=== PATIENT | female | born 1940 | race Hispanic/Latino ===

== ENCOUNTER 2017-03-22 18:00 | Inpatient (IN) | payer MEDICARE, OTHER ==
[~2017-03-22] VITALS: Ht 152.4 cm; Wt 36.8 kg
[2017-03-22] MEDS ORDERED: PLAVIX75 MG PO (18:40)
[2017-03-22] MEDS ORDERED: PIPER-TAZ 3.375 GM 50 ML IV STA (20:18)
[2017-03-22] MEDS ORDERED: VANCOMYCIN 1GM/NS 250 ML 250 ML IV STA (20:18)
--- NOTE | 2017-03-22 20:59 | Diagnostic Imaging Report ---
- views HISTORY: \S\LE CELLULITIS AND PAD \S\[id number] \S\[id number] COMPARISON: None available. FINDINGS: Bones: No acute displaced fracture. Osseous alignment is within normal limits. Joints: The joint spaces are well-maintained. Soft tissues: Diffuse vascular calcifications. Soft tissue swelling surrounding the ankle and foot. IMPRESSION: Soft tissue swelling without bony abnormalities. Signed by: Dr. Cathy Whitfield M.D. on 03/22/2017 8:55 PM
--- NOTE | 2017-03-22 21:00 | Diagnostic Imaging Report ---
EXAMINATION: CHEST SINGLE (PORTABLE) INDICATION: \S\LE CELLULITIS AND PAD \S\[id number] \S\[id number] COMPARISON: None FINDINGS: AP view TUBES and LINES: None. LUNGS: Lungs are well inflated. Subsegmental atelectasis in the left lower lobe. There is no evidence of pneumonia or pulmonary edema. PLEURA: No pleural effusion or pneumothorax. Right apical pleural scarring. HEART AND MEDIASTINUM: The cardiac silhouette is within normal limits. Fluid-filled structure behind the heart likely is a large hiatal hernia. BONES AND SOFT TISSUES: Intact median sternotomy wires. No acute osseous lesion. Soft tissues are unremarkable. UPPER ABDOMEN: No free air under the diaphragm. IMPRESSION: No acute thoracic abnormality. Hiatal hernia. Signed by: Dr. Cathy Whitfield M.D. on 03/22/2017 8:56 PM
[2017-03-22 21:16] LABS: BASOPHILS % 0.4 % (0.0-1.0); EOSINOPHILS # (AUTO) 0.2 (0.0-0.4); EOSINOPHILS % 1.6 % (0.0-6.0); HEMATOCRIT 37.7 % (34.2-44.1); HEMOGLOBIN 12.2 g/dL (12.0-16.0); INR 0.91; LYMPHOCYTES # (AUTO) 2.4 (1.0-3.2); LYMPHOCYTES % 25.9 % (18.0-39.1); MEAN CORPUSCULAR HEMOGLOBIN 31.2 pg (28-32); MEAN CORPUSCULAR HGB CONC 32.4 g/dL (31-35); MEAN CORPUSCULAR VOLUME 96.4 fL (81-99); MONOCYTES # (AUTO) 0.5 (0.2-0.8); MONOCYTES % 5.8 % (4.4-11.3); PLATELET COUNT 306 x10e3/uL (140-360); PROTHROMBIN TIME 12.7 seconds (11.9-14.5); RED BLOOD COUNT 3.91 x10e6/uL (3.6-5.1); RED CELL DISTRIBUTION WIDTH 13.2 % (11.7-14.4)
[2017-03-22 21:17] LABS: PARTIAL THROMBOPLASTIN TIME 35.3 seconds (23.8-35.5)
[2017-03-22 21:28] LABS: TROPONIN I 0.017 ng/mL (0-0.300)
[2017-03-22 21:29] LABS: ALANINE AMINOTRANSFERASE 12 IU/L (0-55); ALBUMIN 3.5 g/dL (3.5-5.0); ALBUMIN/GLOBULIN RATIO 0.8 (0.8-2.0); ALKALINE PHOSPHATASE 107 IU/L (40-150); ANION GAP 12.6 mmol/L (8-16); BLOOD UREA NITROGEN 19 mg/dL (7-26); BUN/CREATININE RATIO 33 (6-25); CALCIUM 9.4 mg/dL (8.4-10.2); CARBON DIOXIDE 25 mmol/L (22-29); CHLORIDE 100 mmol/L (98-107); CREATINE KINASE 79 IU/L (29-168); CREATININE, SERUM 0.57 mg/dL (0.57-1.11); EST GLOMERULAR FILTRATION RATE > 60 ML/MIN (60-); GLUCOSE 99 mg/dL (74-118); MAGNESIUM 1.8 MG/DL (1.3-2.1); POTASSIUM 3.6 mmol/L (3.5-5.1); SODIUM 134 mmol/L (136-145)
[2017-03-22] MEDS ORDERED: ATORVASTATIN CA20 MG PO (21:37)
[2017-03-22] MEDS ORDERED: ASPIRIN 81 MG CHEW TAB PO ONE (22:00)
[2017-03-22] MEDS ORDERED: MORPHINE SULFATE 2 MG/ML SYR IV PRN (22:15)
[2017-03-22] MEDS ORDERED: ONDANSETRON HCL INJ 2 MG/ML VIAL IV PRN (22:15)
[2017-03-22 23:11] LABS: BILIRUBIN,URINE NEGATIVE (NEGATIVE); KETONES,URINE NEGATIVE (NEGATIVE); LEUKOCYTE ESTERASE ,URINE 1+ (NEGATIVE); NITRITE,URINE NEGATIVE (NEGATIVE); PROTEIN,URINE DIPSTICK NEGATIVE (NEGATIVE); URINE UROBILINOGEN 0.2 mg/dL (0.2 - 1)
[2017-03-22 23:12] LABS: CLARITY,URINE CLEAR (CLEAR); COLOR,URINE YELLOW (YELLOW)
[2017-03-22 23:24] LABS: BACTERIA,URINE MODERATE /HPF; EPITHELIAL CELLS,URINE FEW /LPF; RBC,URINE 0-5 /HPF (0-5); WBC,URINE (MAN) 21-50 /HPF (0-5)
[2017-03-22] MEDS: SODIUM CHLORIDE 0.9% 1000ML 1,000 ML IV SCH (23:33)
[2017-03-23] VITALS (9 sets, daily range): BP systolic 106–155; BP diastolic 56–79
[2017-03-23] MEDS: PIPER-TAZ 3.375 GM 50 ML IV SCH ×4 (00:51→21:07)
[2017-03-23 07:16] LABS: BASOPHILS % 0.4 % (0.0-1.0); EOSINOPHILS # (AUTO) 0.1 (0.0-0.4); EOSINOPHILS % 1.7 % (0.0-6.0); HEMATOCRIT 33.1 % (34.2-44.1); HEMOGLOBIN 10.9 g/dL (12.0-16.0); LYMPHOCYTES # (AUTO) 2.2 (1.0-3.2); LYMPHOCYTES % 31.1 % (18.0-39.1); MEAN CORPUSCULAR HEMOGLOBIN 31.1 pg (28-32); MEAN CORPUSCULAR HGB CONC 32.9 g/dL (31-35); MEAN CORPUSCULAR VOLUME 94.6 fL (81-99); MONOCYTES # (AUTO) 0.4 (0.2-0.8); MONOCYTES % 5.3 % (4.4-11.3); NEUTROPHILS # (AUTO) 4.3 (2.1-6.9); NEUTROPHILS % 61.2 % (38.7-80.0); PLATELET COUNT 307 x10e3/uL (140-360); RED CELL DISTRIBUTION WIDTH 13.2 % (11.7-14.4)
[2017-03-23 07:38] LABS: ALANINE AMINOTRANSFERASE 10 IU/L (0-55); ALBUMIN/GLOBULIN RATIO 0.8 (0.8-2.0); ALKALINE PHOSPHATASE 88 IU/L (40-150); ANION GAP 10.8 mmol/L (8-16); BLOOD UREA NITROGEN 12 mg/dL (7-26); BUN/CREATININE RATIO 24 (6-25); CALCIUM 8.8 mg/dL (8.4-10.2); CARBON DIOXIDE 24 mmol/L (22-29); CHLORIDE 110 mmol/L (98-107); CHOL/HDL RATIO 2.9 (3.0-3.6); CHOLESTEROL 152 MD/DL (0-199); CREATINE KINASE 56 IU/L (29-168); CREATININE, SERUM 0.51 mg/dL (0.57-1.11); EST GLOMERULAR FILTRATION RATE > 60 ML/MIN (60-); GLUCOSE 90 mg/dL (74-118); HDL CHOLESTEROL 53 MG/DL (40-60); LDL CHOLESTEROL 87 MG/DL (60-130); MAGNESIUM 1.9 MG/DL (1.3-2.1); POTASSIUM 3.8 mmol/L (3.5-5.1); SODIUM 141 mmol/L (136-145); TRIGLYCERIDES 59 MG/DL (0-149)
[2017-03-23 07:48] LABS: TROPONIN I 0.006 ng/mL (0-0.300)
[2017-03-23] MEDS: ASPIRIN 325 MG TAB EC PO SCH (09:14)
[2017-03-23] MEDS ORDERED: MORPHINE SULFATE 5 MG/ML VIAL IV PRN (10:30)
[2017-03-23 16:17] LABS: CREATINE KINASE MB 2.7 ng/mL (0.00-5.00); TROPONIN I 0.007 ng/mL (0-0.300)
[2017-03-23] MEDS: SODIUM CHLORIDE 0.9% 1000ML 1,000 ML IV SCH ×2 (16:17→23:21)
[2017-03-24] VITALS: BP 123/57
[2017-03-24 01:15] VITALS: BP 132/67
[2017-03-24] MEDS: PIPER-TAZ 3.375 GM 50 ML IV SCH ×4 (02:53→22:37)
[2017-03-24 04:00] VITALS: BP 117/59
[2017-03-24] MEDS: SODIUM CHLORIDE 0.9% 1000ML 1,000 ML IV SCH ×3 (06:01→23:31)
[2017-03-24 06:56] LABS: BASOPHILS % 0.4 % (0.0-1.0); EOSINOPHILS # (AUTO) 0.2 (0.0-0.4); EOSINOPHILS % 2.2 % (0.0-6.0); HEMATOCRIT 31.7 % (34.2-44.1); HEMOGLOBIN 10.3 g/dL (12.0-16.0); LYMPHOCYTES # (AUTO) 2.6 (1.0-3.2); LYMPHOCYTES % 36.6 % (18.0-39.1); MEAN CORPUSCULAR HEMOGLOBIN 31.4 pg (28-32); MEAN CORPUSCULAR HGB CONC 32.5 g/dL (31-35); MEAN CORPUSCULAR VOLUME 96.6 fL (81-99); MONOCYTES # (AUTO) 0.5 (0.2-0.8); MONOCYTES % 7.2 % (4.4-11.3); NEUTROPHILS # (AUTO) 3.7 (2.1-6.9); NEUTROPHILS % 53.5 % (38.7-80.0); PLATELET COUNT 303 x10e3/uL (140-360); RED BLOOD COUNT 3.28 x10e6/uL (3.6-5.1); RED CELL DISTRIBUTION WIDTH 13.2 % (11.7-14.4)
[2017-03-24 07:14] LABS: ANION GAP 11.7 mmol/L (8-16); BLOOD UREA NITROGEN 9 mg/dL (7-26); BUN/CREATININE RATIO 18 (6-25); CALCIUM 8.3 mg/dL (8.4-10.2); CARBON DIOXIDE 23 mmol/L (22-29); CHLORIDE 110 mmol/L (98-107); CREATININE, SERUM 0.49 mg/dL (0.57-1.11); EST GLOMERULAR FILTRATION RATE > 60 ML/MIN (60-); GLUCOSE 99 mg/dL (74-118); POTASSIUM 3.7 mmol/L (3.5-5.1); SODIUM 141 mmol/L (136-145)
[2017-03-24 08:00] VITALS: BP 99/54
[2017-03-24] MEDS: ASPIRIN 325 MG TAB EC PO SCH (09:15)
[2017-03-24 12:00] VITALS: BP 111/55
[2017-03-24 16:00] VITALS: BP 158/68
--- NOTE | 2017-03-24 16:02 | Consultation ---
DATE OF CONSULTATION: March 24, 2017 CARDIAC CONSULTATION REASON FOR CONSULTATION: Ischemic, gangrenous left foot and leg. HISTORY: Information is taken from the patient's daughter over the phone. Patient is demented and cannot give much information. Apparently she is a 76-year-old lady who is a heavy smoker. She used to live in [place], [place]. She does have very severe advanced vascular disease. In fact, the patient had CAD and PCI. Also, she does have severe peripheral arterial vascular disease. She had extensive stenting of the right and left lower extremities. Despite all of that, patient ended up with right above-knee amputation. She had extensive stenting of the left lower extremity. Patient came to this institution complaining of ischemic left leg with gangrenous toes and severe cellulitis. Patient was started on antibiotics. Initial workup by noninvasive study showed extensive stenting of the femoral and popliteal arteries, which is occluded. The left common femoral Doppler waveform is abnormally monophasic indicating external iliac disease. Regardless, cardiac consultation is obtained. I visited with the patient. The patient cannot give much information. Information is taken from the daughter. The patient's problem started as mentioned above. It started with gangrenous changes and cellulitis. Subsequently, she started having gangrenous changes. Patient is brought to this institution. She had a similar problem before where the patient had extensive workup as described above. Despite all of that, she lost her knee, and she needed to go for right above-knee amputation. CARDIAC ISSUES: There is no history of angina. Patient had prior CAD with PCI a couple of years ago. Unfortunately, she is a heavy smoker. She does have a smoker's cough. She does have easy fatigability and shortness of breath on exertion. Some orthopnea but no paroxysmal nocturnal dyspnea. REVIEW OF SYSTEMS: As I mentioned, from the daughter: CARDIAC AND PULMONARY: As per above. GI: Constipation. : Incontinence. NEUROMUSCULAR: Patient's activities are limited because of her right above-knee amputation. PSYCHIATRIC: Patient is demented. SOCIAL HISTORY: She lives now with her daughter. Unfortunately, she is a heavy smoker, but she does not drink alcohol. PAST MEDICAL HISTORY 1. Severe vascular disease status post extensive stenting of the lower extremities with right above-knee amputation. 2. Coronary artery disease status post PCI. 3. Other minor surgery. 4. COPD. 5. Heavy smoker. FAMILY HISTORY: Positive for coronary artery disease. PHYSICAL EXAMINATION GENERAL: Thin lady. Very small, petite. Confused. VITAL SIGNS: Blood pressure is 120/70. Heart rate of 70. Respiratory rate of 18. HEENT: Pupils are reactive. NECK: Bilateral carotid bruit. CHEST: Decreased air entry with crackles and decreased lung expansion. HEART: Normal 1st and 2nd heart sounds. ABDOMEN: Soft. EXTREMITIES: Right above-knee amputation. Ischemic left foot with gangrenous changes in the foot. No pulses below the femoral level. NEUROLOGIC: Patient is confused but able to move her extremities. LABORATORY DATA: White blood cell count of 6.96, hemoglobin 10.3, hematocrit 32%, platelet count 303,000. Sodium 141, potassium 3.7, BUN of 9, creatinine of 0.25, glucose 99. CKs are normal. Triglycerides of 59, total cholesterol 152, HDL of 53, LDL of 87. ALLERGIES: NONE. HOME MEDICATIONS: Plavix and Lipitor. IMPRESSION AND PLAN 1. Ischemic left foot with gangrenous changes and ischemic left leg with prior intervention and evidence of occluded stent from the femoral all the way to the popliteal. 2. Coronary artery disease, status post percutaneous coronary intervention. 3. Chronic obstructive pulmonary disease. 4. Smoker. 5. Hypercholesterolemia. 6. Right above-knee amputation following a long course of treatment. PLAN: Unfortunately, the patient's prognosis for that leg is guarded. We will try to do CT angiogram of the pelvis and runoff to look at her anatomy. Intervention will be limited by the fact the patient is very petite and her brachial and radial are very small and extensive long occlusion of stent. Regardless, we will re-evaluate the patient. Will discuss more with the family. Will get a CT angiogram. She does have bilateral carotid bruit. Will order a carotid Doppler. We will follow the patient's progression with you. Job#: [id number]
[2017-03-24] MEDS ORDERED: SODIUM CHLORIDE 0.9% 50ML 100 ML ONE (22:10)
[2017-03-24] MEDS ORDERED: IOPAMIDOL 370 MG/ML 200 ML INFUS..BTL INJ ONE (22:10)
--- NOTE | 2017-03-24 22:25 | Diagnostic Imaging Report ---
CTA ABD/PEL/RUN OFF COMPARISON: None HISTORY: 76 y/o with history of left leg iliac disease Technique: Multi-detector CT technology was employed. CT of the abdomen, pelvis and lower extremities were performed following the IV administration of 100 cc of Isovue-370. IV CONTRAST:100mL of Isovue-370 ORAL CONTRAST: None RADIATION DOSE: Total DLP: 572.26 mGy*cm Estimated Effective Dose: DLP x 0.015 mSv COMPLICATIONS: None For optimization of anatomic evaluation, multiplanar reconstruction, maximum intensity projections, and advanced 3-D off-line postprocessing were performed on a dedicated stand-alone workstation under the direct supervision of the interpreting physician. FINDINGS: Potential study limitations: None. VASCULAR WITH ADVANCED 3-D OFF-LINE POSTPROCESSING: The abdominal aorta is diffusely atherosclerotic with multiple areas of defect calcified and soft plaque. The abdominal aorta measures: 2.2 cm at the supramesenteric segment 1.7 cm at the mesenteric segment 1.6 cm at the renal segment 1.7 cm at the mid infrarenal segment 1.6 cm at the aortic bifurcation. The celiac axis, and SMA appear patent. ORI is not identified There are single renal arteries bilaterally, both of which appear patent. There are bilateral external iliac stents in place. Right: There is patency of the right external iliac to the level of the femoral artery. The right femoral artery is occluded all the way to the proximal popliteal without distal reconstitution. Left: The left iliac vessels are patent with evidence of complete occlusion at the proximal superficial femoral artery and distal reconstitution at the distal popliteal artery and patency of the posterior tibial, anterior tibial and peroneal artery with reduced caliber to the level of the ankle. LOWER CHEST: Minimal bibasilar basilar congestion. There is a large sliding hiatal hernia present. ABDOMEN: The liver, gallbladder, spleen, and pancreas appear normal. The adrenal glands appear normal. Both kidneys are normal in size, shape, and density. There is no abnormal mass or hydronephrosis. There is no significant retroperitoneal adenopathy. No free fluid or free air within the abdomen or pelvis. The bowel appears unremarkable on this non-GI contrast examination. The appendix is not visualized. BONES: Degenerative changes of the thoracal lumbar spine with mild levorotoscoliosis. IMPRESSION: 1. Abnormal abdominal aorta with evidence of severe atherosclerotic disease of the thoracoabdominal aorta and branches. No acute abdominal aortic pathology. 2. There is complete occlusion of the bilateral femoral arteries as described above. There is distal reduced diffusion on the left at the level of the distal popliteal artery with three-vessel runoff to the level of the ankle. Signed by: Dr. Trenton Eldridge M.D. on 03/24/2017 10:22 PM
[2017-03-25 00:40] VITALS: BP 125/60
[2017-03-25] MEDS: PIPER-TAZ 3.375 GM 50 ML IV SCH ×4 (03:50→20:49)
[2017-03-25 04:00] VITALS: BP 108/59
[2017-03-25 08:00] VITALS: BP 121/69
[2017-03-25] MEDS: ASPIRIN 325 MG TAB EC PO SCH (09:15)
[2017-03-25] MEDS ORDERED: CLOPIDOGREL BISULFATE 75 MG TAB PO ONE (12:30)
[2017-03-25] MEDS: SODIUM CHLORIDE 0.9% 1000ML 1,000 ML IV SCH ×2 (16:15→20:49)
[2017-03-25 20:00] VITALS: BP 149/87
[2017-03-26] VITALS (7 sets, daily range): BP systolic 104–161; BP diastolic 56–73
[2017-03-26] MEDS: PIPER-TAZ 3.375 GM 50 ML IV SCH ×4 (03:30→20:21)
[2017-03-26] MEDS: SODIUM CHLORIDE 0.9% 1000ML 1,000 ML IV SCH ×2 (04:41→13:18)
[2017-03-26] MEDS: ASPIRIN 325 MG TAB EC PO SCH (08:06)
[2017-03-26] MEDS: CLOPIDOGREL BISULFATE 75 MG TAB PO SCH (08:06)
[2017-03-26 09:28] LABS: BASOPHILS % 0.3 % (0.0-1.0); EOSINOPHILS # (AUTO) 0.1 (0.0-0.4); EOSINOPHILS % 0.8 % (0.0-6.0); HEMATOCRIT 35.5 % (34.2-44.1); HEMOGLOBIN 11.4 g/dL (12.0-16.0); MEAN CORPUSCULAR HEMOGLOBIN 30.8 pg (28-32); MEAN CORPUSCULAR HGB CONC 32.1 g/dL (31-35); MEAN CORPUSCULAR VOLUME 95.9 fL (81-99); MONOCYTES # (AUTO) 0.3 (0.2-0.8); MONOCYTES % 4.5 % (4.4-11.3); NEUTROPHILS # (AUTO) 5.2 (2.1-6.9); NEUTROPHILS % 79.1 % (38.7-80.0); PLATELET COUNT 322 x10e3/uL (140-360); RED CELL DISTRIBUTION WIDTH 13.2 % (11.7-14.4)
[2017-03-26 09:59] LABS: ANION GAP 14.2 mmol/L (8-16); BLOOD UREA NITROGEN 8 mg/dL (7-26); BUN/CREATININE RATIO 14 (6-25); CALCIUM 8.7 mg/dL (8.4-10.2); CARBON DIOXIDE 22 mmol/L (22-29); CHLORIDE 109 mmol/L (98-107); CREATININE, SERUM 0.58 mg/dL (0.57-1.11); EST GLOMERULAR FILTRATION RATE > 60 ML/MIN (60-); GLUCOSE 161 mg/dL (74-118); POTASSIUM 4.2 mmol/L (3.5-5.1); SODIUM 141 mmol/L (136-145)
[2017-03-26] MEDS ORDERED: QUETIAPINE FUMARATE 25 MG TAB PO ONE (12:00)
[2017-03-26] MEDS ORDERED: MORPHINE SULFATE 5 MG/ML VIAL IV PRN (14:30)
[2017-03-26] MEDS: QUETIAPINE FUMARATE 25 MG TAB PO SCH (20:21)
[2017-03-27] VITALS (12 sets, daily range): BP systolic 103–153; BP diastolic 53–85
[2017-03-27] MEDS: PIPER-TAZ 3.375 GM 50 ML IV SCH ×4 (03:45→20:49)
[2017-03-27 07:08] LABS: BASOPHILS % 0.5 % (0.0-1.0); EOSINOPHILS # (AUTO) 0.2 (0.0-0.4); EOSINOPHILS % 3.2 % (0.0-6.0); HEMATOCRIT 37.3 % (34.2-44.1); HEMOGLOBIN 11.6 g/dL (12.0-16.0); LYMPHOCYTES # (AUTO) 1.6 (1.0-3.2); LYMPHOCYTES % 24.8 % (18.0-39.1); MEAN CORPUSCULAR HEMOGLOBIN 30.3 pg (28-32); MEAN CORPUSCULAR HGB CONC 31.1 g/dL (31-35); MEAN CORPUSCULAR VOLUME 97.4 fL (81-99); MONOCYTES # (AUTO) 0.5 (0.2-0.8); MONOCYTES % 7.1 % (4.4-11.3); NEUTROPHILS # (AUTO) 4.2 (2.1-6.9); NEUTROPHILS % 64.1 % (38.7-80.0); PLATELET COUNT 340 x10e3/uL (140-360); RED BLOOD COUNT 3.83 x10e6/uL (3.6-5.1); RED CELL DISTRIBUTION WIDTH 13.4 % (11.7-14.4)
[2017-03-27 07:43] LABS: ANION GAP 12.8 mmol/L (8-16); BLOOD UREA NITROGEN 14 mg/dL (7-26); BUN/CREATININE RATIO 26 (6-25); CARBON DIOXIDE 26 mmol/L (22-29); CHLORIDE 109 mmol/L (98-107); CREATININE, SERUM 0.53 mg/dL (0.57-1.11); EST GLOMERULAR FILTRATION RATE > 60 ML/MIN (60-); GLUCOSE 76 mg/dL (74-118); POTASSIUM 3.8 mmol/L (3.5-5.1); SODIUM 144 mmol/L (136-145)
[2017-03-27] MEDS: ASPIRIN 325 MG TAB EC PO SCH (08:52)
[2017-03-27] MEDS: CLOPIDOGREL BISULFATE 75 MG TAB PO SCH (08:52)
[2017-03-27] MEDS: SODIUM CHLORIDE 0.9% 1000ML 1,000 ML IV SCH (09:00)
[2017-03-27] MEDS ORDERED: IOPAMIDOL 370 MG/ML 200 ML INFUS..BTL INJ ONE ×2 (11:00→12:20)
[2017-03-27] MEDS ORDERED: LIDOCAINE HCL 2% LOCAL 20 ML VIAL ONE (11:00)
[2017-03-27] MEDS ORDERED: HEPARIN SOD/SOD CHLORIDE 2,000 ML ONE (11:00)
[2017-03-27] MEDS ORDERED: MIDAZOLAM HCL 2 MG/2 ML VIAL ONE (11:14)
[2017-03-27] MEDS ORDERED: FENTANYL CITRATE/PF 100MCG/2 ML INJ ONE (11:14)
[2017-03-27] MEDS ORDERED: SODIUM CHLORIDE 0.9% 1000ML 1,000 ML ONE ×2 (11:17→12:57)
--- NOTE | 2017-03-27 13:47 | Operative Report ---
DATE OF PROCEDURE: March 27, 2017 TITLE OF PROCEDURES 1. Abdominal and leg angiogram to the 3rd order. 2. Repeat injection, 3rd and 4th orders. 3. Percutaneous transluminal angioplasty of left external common iliac artery. 4. Percutaneous transluminal angioplasty and stenting of the left femoral artery. INDICATIONS: Ischemic left leg with gangrenous left foot and severe rest pain/salvage intervention to save the lower extremity. Prior to the procedure, I explained there is a chance 50:50 of the patient needing an amputation. TECHNICAL DETAILS: Patient was brought to the cardiac minilab operator. She was given 0.5 mg of Versed followed by 0.5 mg of Versed. During the course, she got 25 mg of fentanyl. Cinegram was done, which showed extensive stenting of both lower extremities involving femorals and iliacs. We elected to go through the right common femoral. This was entered. Definitely, the artery is occluded there. However, using the stent and the anatomical landmarks, we passed wires through the total occlusion of the right common femoral and the distal external iliac. We managed to go through the lumen. A 4 Portuguese was established in [address]. We used a tennis racket 4 Portuguese to do abdominal and pelvic angiogram. Then, using the Godengonis racket and DeepField Advantage wire, we crossed over to the left leg. We crossed all the way to the superficial femoral. At that time, we place up-and-over sheath 6 Portuguese. Heparin was given in the usual dosage. We used a crossing catheter. The crossing catheter was advanced with the help of fluoro, and it went through totally occluded SFA from its origin all the way to the popliteal artery. We were definitely inside the true lumen. Then we used a 300-cm, 0.014 wire. We did extensive ballooning of the SFA. I should mention before we did that, we did ballooning of the severe lesion of the left external common iliac using 6 x 60 balloon to facilitate the blood flow to the SFA and the distal leg. After extensive ballooning with 4 x 14-mm balloon, it was obvious that there is an area of problem and the cause for old stent occlusion at the superficial femoral at its origin. There was no AngioSculpt balloon. For that reason, we used LifeStent 6 x 60. We repeated ballooning all the way to the outflow and inflow of that SFA. Repeated angiogram showed satisfactory results. At that time, the case was ended. The sheath was removed. Hemostasis was achieved manually. No complication and no blood loss. RESULTS: Abdominal angiogram. There is heavily calcified aorta. There is distal small aneurysm. There is extensive stenting of both iliacs extending in the superficial femoral as well as deep femoral arteries bilaterally. On the right leg, there is right above-knee amputation. Patient had totally occluded distal right external iliac and the common femoral artery. On the left lower extremity, there is severe lesion at the bifurcation of the left internal and external iliac with 80% stenosis. There is extensive stenting in that area. In the deep femoral, there is a stent in it with 80% ostial lesion. The left superficial femoral artery is totally occluded all the way to the popliteals. There is a stent there, and the stent is totally occluded. There is severe disease in the anterior and posterior tibial artery. ENVIRONMENTAL PERMITTING SPECIALIST of the left external common iliac artery. The lesion prior to ballooning was at 80%. Following ballooning with 6 x 60 Ultraverse balloon, it is at 0%. Left superficial femoral extensively diseased. We ballooned with 4 x 40 balloon through all its course, and subsequently we stented the ostial left superficial femoral artery using 6 x 60-mm LifeStent. Repeated ballooning was done extensively. IMPRESSION 1. Successful percutaneous transluminal angioplasty of left iliac artery. 2. Successful stenting of the proximal superficial femoral artery stent in-stent as well as ballooning angioplasty of all the left superficial femoral artery. COMPLICATIONS: None. BLOOD LOSS: Minimum. The case was ended. I called the [id number] and informed her about the procedure and the results. Job#: [id number]
[2017-03-27] MEDS: QUETIAPINE FUMARATE 25 MG TAB PO SCH (20:49)
[2017-03-28] VITALS (7 sets, daily range): BP systolic 102–141; BP diastolic 53–96
[2017-03-28] MEDS: PIPER-TAZ 3.375 GM 50 ML IV SCH ×4 (03:56→20:42)
[2017-03-28] MEDS: SODIUM CHLORIDE 0.9% 1000ML 1,000 ML IV SCH (06:13)
[2017-03-28 06:37] LABS: BASOPHILS % 0.4 % (0.0-1.0); EOSINOPHILS # (AUTO) 0.2 (0.0-0.4); EOSINOPHILS % 3.3 % (0.0-6.0); HEMATOCRIT 34.6 % (34.2-44.1); LYMPHOCYTES # (AUTO) 1.9 (1.0-3.2); LYMPHOCYTES % 25.5 % (18.0-39.1); MEAN CORPUSCULAR HEMOGLOBIN 30.9 pg (28-32); MEAN CORPUSCULAR HGB CONC 31.8 g/dL (31-35); MEAN CORPUSCULAR VOLUME 97.2 fL (81-99); MONOCYTES # (AUTO) 0.5 (0.2-0.8); MONOCYTES % 6.9 % (4.4-11.3); NEUTROPHILS # (AUTO) 4.7 (2.1-6.9); NEUTROPHILS % 63.6 % (38.7-80.0); PLATELET COUNT 319 x10e3/uL (140-360); RED BLOOD COUNT 3.56 x10e6/uL (3.6-5.1); RED CELL DISTRIBUTION WIDTH 13.2 % (11.7-14.4)
[2017-03-28 07:06] LABS: ANION GAP 12.7 mmol/L (8-16); BLOOD UREA NITROGEN 11 mg/dL (7-26); BUN/CREATININE RATIO 21 (6-25); CALCIUM 8.9 mg/dL (8.4-10.2); CARBON DIOXIDE 24 mmol/L (22-29); CHLORIDE 109 mmol/L (98-107); CREATININE, SERUM 0.52 mg/dL (0.57-1.11); EST GLOMERULAR FILTRATION RATE > 60 ML/MIN (60-); GLUCOSE 88 mg/dL (74-118); POTASSIUM 3.7 mmol/L (3.5-5.1); SODIUM 142 mmol/L (136-145)
[2017-03-28] MEDS: ASPIRIN 325 MG TAB EC PO SCH (08:50)
[2017-03-28] MEDS: CLOPIDOGREL BISULFATE 75 MG TAB PO SCH (08:50)
[2017-03-28] MEDS: QUETIAPINE FUMARATE 25 MG TAB PO SCH (20:42)
[2017-03-29 00:33] VITALS: BP 119/70
[2017-03-29 00:52] VITALS: BP 147/68
[2017-03-29] MEDS: PIPER-TAZ 3.375 GM 50 ML IV SCH ×2 (03:08→09:00)
[2017-03-29 05:28] VITALS: BP 136/75
[2017-03-29 07:45] VITALS: BP 147/66
[2017-03-29 07:54] VITALS: BP 147/66
[2017-03-29] MEDS: ASPIRIN 325 MG TAB EC PO SCH (09:00)
[2017-03-29] MEDS: CLOPIDOGREL BISULFATE 75 MG TAB PO SCH (09:00)
[2017-03-29 11:34] VITALS: BP 132/62
== END 2017-03-29 13:05 | disposition home or self-care (01) | DRG 253 ==
LOC: ER 18:00 → MED/SURG3 22:33 → INTOOBSV 22:33 → OBSVTOIN 03-24 15:36
PROC: 047J3ZZ Dilation of Left External Iliac Artery, Percutaneous Approach (ICD-10-PCS; principal; 2017-03-27)
PROC: 047L3DZ Dilation of Left Femoral Artery with Intraluminal Device, Percutaneous Approach (ICD-10-PCS; 2017-03-27)
DX: I70.262 Atherosclerosis of native arteries of extremities with gangrene, left leg (principal); L03.116 Cellulitis of left lower limb; I50.32 Chronic diastolic (congestive) heart failure; F03.90 Unspecified dementia, unspecified severity, without behavioral disturbance, psychotic disturbance, mood disturbance, and anxiety; T82.858A Stenosis of other vascular prosthetic devices, implants and grafts, initial encounter; N39.0 Urinary tract infection, site not specified; I70.92 Chronic total occlusion of artery of the extremities; Z89.611 Acquired absence of right leg above knee; I10 Essential (primary) hypertension; F17.210 Nicotine dependence, cigarettes, uncomplicated; I25.10 Atherosclerotic heart disease of native coronary artery without angina pectoris; Z95.5 Presence of coronary angioplasty implant and graft; J44.9 Chronic obstructive pulmonary disease, unspecified; Z95.820 Peripheral vascular angioplasty status with implants and grafts; R41.0 Disorientation, unspecified
CPT/HCPCS: 36140; 36415; 37222; 37227; 71010; 75630; 75635; 75710; 80048; 80053; 80061; 81001; 82550; 82553; 83605; 83735; 84484; 85025; 85610; 85730; 87040; 87086; 93005; 93306; 93880; 93926; 93971; 96361; 99284; C1766; G0378; J2001; J2250; J2270; J2405; J2543; J3370; J7030; Q9967

== ENCOUNTER 2017-09-22 21:45 | Inpatient (IN) | payer MEDICARE, OTHER ==
[~2017-09-22] VITALS: Ht 149.9 cm; Wt 36.0 kg
[~2017-09-22 21:45] MED LIST: ATORVASTATIN CA20 MG PO; PLAVIX75 MG PO
[2017-09-22 22:26] LABS: BASOPHILS % 0.3 % (0.0-1.0); EOSINOPHILS # (AUTO) 0.1 (0.0-0.4); HEMATOCRIT 39.9 % (34.2-44.1); HEMOGLOBIN 13.1 g/dL (12.0-16.0); LYMPHOCYTES # (AUTO) 3.3 (1.0-3.2); LYMPHOCYTES % 40.6 % (18.0-39.1); MEAN CORPUSCULAR HEMOGLOBIN 30.6 pg (28-32); MEAN CORPUSCULAR HGB CONC 32.8 g/dL (31-35); MEAN CORPUSCULAR VOLUME 93.2 fL (81-99); MONOCYTES # (AUTO) 0.5 (0.2-0.8); MONOCYTES % 5.6 % (4.4-11.3); NEUTROPHILS # (AUTO) 4.2 (2.1-6.9); NEUTROPHILS % 52.1 % (38.7-80.0); PLATELET COUNT 296 x10e3/uL (140-360); RED BLOOD COUNT 4.28 x10e6/uL (3.6-5.1); RED CELL DISTRIBUTION WIDTH 14.1 % (11.7-14.4)
[2017-09-22] MEDS ORDERED: ASPIRIN 81 MG CHEW TAB PO ONE (22:30)
[2017-09-22 22:33] LABS: INR 0.94; PROTHROMBIN TIME 11.8 seconds (11.9-14.5)
[2017-09-22 22:34] LABS: PARTIAL THROMBOPLASTIN TIME 29.7 seconds (23.8-35.5)
[2017-09-22 22:44] LABS: ALANINE AMINOTRANSFERASE 11 IU/L (0-55); ALBUMIN 3.6 g/dL (3.5-5.0); ALBUMIN/GLOBULIN RATIO 0.8 (0.8-2.0); ALKALINE PHOSPHATASE 109 IU/L (40-150); ANION GAP 14.9 mmol/L (8-16); BLOOD UREA NITROGEN 8 mg/dL (7-26); BUN/CREATININE RATIO 13 (6-25); CALCIUM 9.8 mg/dL (8.4-10.2); CARBON DIOXIDE 28 mmol/L (22-29); CHLORIDE 101 mmol/L (98-107); CREATINE KINASE 37 IU/L (29-168); CREATININE, SERUM 0.62 mg/dL (0.57-1.11); EST GLOMERULAR FILTRATION RATE > 60 ML/MIN (60-); GLUCOSE 93 mg/dL (74-118); POTASSIUM 3.9 mmol/L (3.5-5.1); SODIUM 140 mmol/L (136-145)
--- NOTE | 2017-09-22 23:16 | Diagnostic Imaging Report ---
EXAMINATION: CHEST SINGLE (PORTABLE) INDICATION: Left lung rhonchi. COMPARISON: CT of the abdomen and pelvis on 03/24/2017 FINDINGS: TUBES and LINES: None. LUNGS: Lungs are well inflated. Left lung base retrocardiac opacity in keeping with hiatal hernia. There is no evidence of pneumonia or pulmonary edema. PLEURA: No pleural effusion or pneumothorax. HEART AND MEDIASTINUM: The cardiomediastinal silhouette is unremarkable. There are atherosclerotic calcifications within the aorta. Midline sternotomy wires are stable BONES AND SOFT TISSUES: No acute osseous lesion. Soft tissues are unremarkable. UPPER ABDOMEN: No free air under the diaphragm. IMPRESSION: No acute thoracic abnormality. Signed by: Dr. Trenton Eldridge M.D. on 09/22/2017 11:14 PM
[2017-09-23] VITALS (8 sets, daily range): BP systolic 93–155; BP diastolic 60–76
[2017-09-23] MEDS ORDERED: ONDANSETRON HCL INJ 2 MG/ML VIAL IV PRN (00:15)
[2017-09-23] MEDS ORDERED: SODIUM CHLORIDE FLUSH 10 ML SYR INJ PRN (00:15)
[2017-09-23] MEDS ORDERED: HEPARIN SOD (PORCINE) 5,000 UNIT/ML VIAL IV ONE (00:15)
[2017-09-23] MEDS ORDERED: HEPARIN 25,000U/0.45% NS 250ML 25,000 UNIT in SODIUM CHLORIDE 0.9% 250ML 0 ML IV SCH ×4 (00:15→23:05)
[2017-09-23] MEDS ORDERED: SODIUM CHLORIDE 0.9% 100 ML 100 ML ONE (02:15)
--- NOTE | 2017-09-23 05:58 | Diagnostic Imaging Report ---
CTA OF THE ABDOMINAL AORTA Comparison: 03/24/2017 History: 76 y/o with history of lower extremity swelling Technique: Multi-detector CT images were obtained of the abdomen, pelvis and lower extremities IV CONTRAST:100mL of Isovue-370 ORAL CONTRAST: Water RADIATION DOSE: Total DLP: 565.45 mGy*cm Estimated Effective Dose: DLP x 0.015 mSv COMPLICATIONS: None For optimization of anatomic evaluation, multiplanar reconstruction, maximum intensity projections, and advanced 3-D off-line postprocessing were performed on a dedicated stand-alone workstation under the direct supervision of the interpreting physician. FINDINGS: Potential study limitations: None. VASCULAR WITH ADVANCED 3-D OFF-LINE POSTPROCESSING: The abdominal aorta is abnormal in course, caliber, and contour. There is no acute aortic pathology. There is extensive atherosclerotic disease of the abdominal aorta and branches with mild ectasia of the infrarenal abdominal aorta. The abdominal aorta measures: 2.2 cm at the supramesenteric segment 2 cm at the mesenteric segment 1.6 cm at the renal segment 2.2 cm at the mid infrarenal segment 1.5 cm at the aortic bifurcation. The celiac axis, SMA, and ORI are patent. There are single renal arteries bilaterally, both of which appear patent. The pelvic arteries are tortuous, but otherwise normal in caliber and contour. There is severe (complete) stenosis of the right common iliac artery without distal reconstitution. EXTREMITIES: The right lower extremity appears to be amputated [id number]. The left lower extremity demonstrates a patent common iliac, internal and external iliac with severe atherosclerotic disease. There is complete occlusion of the superficial femoral and profunda femoris arteries with numerous superficial collaterals resulting in reconstitution of the distal popliteal artery and overall a two-vessel runoff including the peroneal and anterior tibial arteries. The fluid is supplied by the dorsal artery from the anterior tibial. LOWER CHEST: The visualized lung bases are clear. Moderate sized sliding hiatal hernia is present. ABDOMEN: The liver, gallbladder, spleen, and pancreas appear normal. The adrenal glands appear normal. Both kidneys are normal in size, shape, and density. There is no abnormal mass or hydronephrosis. There is no retroperitoneal adenopathy. No free fluid or free air within the abdomen or pelvis. The bowel appears unremarkable on this non-GI contrast examination. IMPRESSION: 1. Severe atherosclerotic disease of the abdominal aorta and branches with complete occlusion of the right lower extremity vasculature at the level of the right common iliac artery. 2. Progressive thrombosis of the right lower extremity arterial system with [id number] amputation without perfusion from the common right iliac artery. 3. Stable left lower extremity with long segmental occlusion of the common femoral, superficial femoral and profunda femoris arteries. There is distal reconstitution at the level of the distal popliteal artery with two-vessel runoff as described above. The left foot is supplied by the dorsal artery coming off the anterior tibial artery. Signed by: Dr. Trenton Eldridge M.D. on 09/23/2017 5:54 AM
[2017-09-23] MEDS ORDERED: SODIUM CHLORIDE 0.9% 250ML 250 ML ONE (06:09)
[2017-09-23] MEDS ORDERED: IOPAMIDOL 370 MG/ML 200 ML INFUS..BTL INJ ONE (06:35)
[2017-09-23] MEDS: CLINDAMYCIN PHOS 900MG/ D5W 50 50 ML IV SCH ×3 (07:18→23:28)
[2017-09-23] MEDS: CLOPIDOGREL BISULFATE 75 MG TAB PO SCH (08:09)
--- NOTE | 2017-09-23 08:32 | History and Physical ---
A 76-year-old female, who comes in with left lower extremity pain and erythema and discoloration. HISTORY OF PRESENTING ILLNESS: This is Ms. Kerry Yo with the history of hypertension, with the history of peripheral vascular disease and history of COPD, was in usual state of health until the patient started to note left lower extremity swelling, erythema, and tenderness, and also area on her 4th digit, which was looking black. The patient comes in, was found to have cellulitis of left lower extremity and also severe peripheral vascular disease and was admitted for the same. PAST MEDICAL HISTORY: History of Alzheimer disease, history of hypertension, history of hyperlipidemia, and history of PAD and COPD. SURGICAL HISTORY: History of multiple stent placements in the right lower extremity. Patient had right AKA secondary to PAD and continues to smoke at this time. PAST SOCIAL HISTORY: Dementia, lives with daughter in the [place]. No EtOH, no IV drug abuse. Positive for smoking, still smokes about a pack a day. REVIEW OF SYSTEMS: Negative for chest pain. No shortness of breath, no nausea, vomiting, diarrhea, no constipation, no rectal bleeding. Positive for pain in the lower extremities. The patient also has no diplopia and no blurry vision. EXAMINATION GENERAL: Patient is alert and oriented times 3. VITAL SIGNS: Temperature is 96.6, blood pressure is 152/76, pulse of 76, respiration of 17, pulse oximetry 99% on room air. HEENT: Normocephalic, atraumatic. Patient has an arcus senilis. Cachectic. CVS: S1, S2. Regular rate and rhythm. LUNGS: Decreased air entry in the lung hernandez. ABDOMEN: Nontender, nondistended. Right above-knee amputation. Patient also has left lower extremity with decreased pulses. No pedal pulses, no posterior tibialis pulses felt. Patient also has an eschar on the left 3rd digit with surrounding erythema. Also, hammertoe with ulceration on the 2nd toe. The patient has no pulses as mentioned above. ASSESSMENT: Peripheral artery disease, cellulitis left lower extremity. The imaging studies, computed tomography runoff shows severe atherosclerotic disease of abdominal aorta branch with the complete occlusion of the right lower extremity vasculature to the level of the right common iliac. Stable left lower extremity with long segmental occlusion of the common femorals, superficial femoral, and the profunda femoris arteries. PLAN: Continue on heparin drip. Consult with Dr. Conde will be done. Will continue monitoring the patient. Further recommendation per clinical course. The patient is on clindamycin for cellulitis. She has a dry gangrene. At this time, pain management and observation will be suggested. Will consult with cardiology for management of the PAD. She is on Plavix and she is on heparin drip, and will continue on the statin at this time. Further recommendation per clinical course. The additional diagnosis will be also moderate protein-calorie malnutrition and nutrition consult will also be obtained. \S\ Job#: [id number] CQ
[2017-09-23] MEDS: ASPIRIN 81 MG CHEW TAB PO SCH (16:31)
[2017-09-23] MEDS: ATORVASTATIN 20 MG TAB PO SCH (20:31)
[2017-09-24] VITALS (7 sets, daily range): BP systolic 98–152; BP diastolic 50–74
--- NOTE | 2017-09-24 01:17 | Consultation ---
DATE OF CONSULTATION: September 23, 2017 CARDIOLOGY CONSULTATION REASON FOR CONSULTATION: Gangrenous changes to left foot. HISTORY OF PRESENT ILLNESS: Ms. Yo is a 76-year-old woman with hypertension dyslipidemia, COPD, and history of smoking, peripheral arterial disease, status post prior right AKA, and previous revascularization to the left lower extremity, who presents with gangrenous changes to right toes. In addition to erythematous changes of the right forefoot and abnormal pulses on palpation with cold distal forefoot. Symptoms per records all going on for at least over 2 weeks. Family currently unavailable at bedside. Patient confused. Attempt to calling phone numbers available on electronic medical records for family to contact and discuss further, however did not get a hold of anybody at this time. Will attempt later. She also has a history of dementia. She denies any chest pain or shortness of breath at this point in time and is, otherwise, confused, unable to obtain much additional information. REVIEW OF SYSTEMS: A 12-system review limited based on patient's mental status. ALLERGIES: NO KNOWN DRUG ALLERGIES. PAST MEDICAL HISTORY: Significant for hypertension, dyslipidemia, COPD, history smoking, PAD, and dementia. SOCIAL HISTORY: Smoker. No reported history of alcohol or drugs per MAR. FAMILY HISTORY: Noncontributory. PHYSICAL EXAM VITALS: Temperature 96.4, heart rate is 62, respiratory rate 20, blood pressure 130/60, O2 sat 95% on room air. GENERAL: No acute distress alert, however confused. NECK: Has bilateral carotid bruits, left more than right. No JVD. CHEST: Clear to auscultation bilaterally. CARDIOVASCULAR: Regular rate and rhythm. Normal S1 and S2. No S3, no S4. Systolic ejection murmur /6. ABDOMEN: Soft. EXTREMITIES: Right AKA. Left lower extremity with distal forefoot erythema. Gangrenous changes to toes. Nonpalpable pulses in the dorsalis pedis and posterior tibialis artery, as well as popliteal artery on the left. Minimally palpable pulses to the left femoral. CARDIOVASCULAR MEDICATIONS 1. Clopidogrel 75 mg daily. 2. Atorvastatin 20 mg nightly. 3. Heparin IV. 4. On clindamycin. STUDIES: White blood cells 8, hemoglobin 13.1, platelets 296,000. INR 0.9, PTT 194. Heparin being adjusted PT 11.8. Sodium 140, potassium 3.9, chloride 101, bicarbonate 28, BUN 8, creatinine 0.62, glucose 93. Total bilirubin 0.5, AST is 22, ALT 11, alk phos 109. CK 37, CK-MB 0.9, troponin-I less than 0.001. Total protein 8.2, albumin 3.6. Blood cultures drawn and pending. CTA ordered and shows severe atherosclerotic disease of abdominal aorta and branches with complete occlusion of the right lower extremity vasculature at the level of the right common iliac artery. Progressive thrombosis of the right lower extremity arterial system with above-knee amputation without perfusion from the right common iliac artery. Stable left lower extremity with long segmental occlusion of the common femoral, superficial femoral, and profunda femoris arteries. Distal reconstitutes at the level of the distal popliteal artery with 2-vessel runoff via peroneal and anterior tibial artery with left foot supply by dorsalis pedis artery. Chest x-ray no acute abnormality. Telemetry in sinus rhythm. ASSESSMENT 1. Critical limb ischemia with complex occlusion of femoral arteries to left lower extremity. 2. Chronic obstructive pulmonary disease and history of smoking. 3. Hypertension. 4. Dyslipidemia. 5. 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 6. History of right above-knee amputation. RECOMMENDATIONS 1. Agree with heparin IV. 2. Aspirin and statin. 3. Will discuss with family members goals of care and discuss possibility of angiography and possible revascularization to the left lower extremity if congruent with patient's and family's wishes. At this point, unable to confirm this and further information which once patient's family is available, will further assess. If considered a candidate per patient's/family's wishes are to proceed with invasive approach, will arrange for early next week. Job#: [id number]
[2017-09-24 05:19] LABS: BASOPHILS % 0.4 % (0.0-1.0); EOSINOPHILS # (AUTO) 0.1 (0.0-0.4); EOSINOPHILS % 2.6 % (0.0-6.0); HEMOGLOBIN 11.1 g/dL (12.0-16.0); LYMPHOCYTES # (AUTO) 1.6 (1.0-3.2); LYMPHOCYTES % 35.9 % (18.0-39.1); MEAN CORPUSCULAR HEMOGLOBIN 30.4 pg (28-32); MEAN CORPUSCULAR HGB CONC 32.6 g/dL (31-35); MEAN CORPUSCULAR VOLUME 93.2 fL (81-99); MONOCYTES # (AUTO) 0.3 (0.2-0.8); MONOCYTES % 7.4 % (4.4-11.3); NEUTROPHILS # (AUTO) 2.4 (2.1-6.9); NEUTROPHILS % 53.5 % (38.7-80.0); PLATELET COUNT 288 x10e3/uL (140-360); RED BLOOD COUNT 3.65 x10e6/uL (3.6-5.1)
[2017-09-24 05:44] LABS: ANION GAP 12.2 mmol/L (8-16); BLOOD UREA NITROGEN 9 mg/dL (7-26); BUN/CREATININE RATIO 17 (6-25); CALCIUM 8.9 mg/dL (8.4-10.2); CARBON DIOXIDE 27 mmol/L (22-29); CHLORIDE 104 mmol/L (98-107); CHOL/HDL RATIO 3.5 (3.0-3.6); CHOLESTEROL 176 MD/DL (0-199); CREATININE, SERUM 0.54 mg/dL (0.57-1.11); EST GLOMERULAR FILTRATION RATE > 60 ML/MIN (60-); GLUCOSE 85 mg/dL (74-118); HDL CHOLESTEROL 50 MG/DL (40-60); LDL CHOLESTEROL 109 MG/DL (60-130); POTASSIUM 3.2 mmol/L (3.5-5.1); SODIUM 140 mmol/L (136-145); TRIGLYCERIDES 84 MG/DL (0-149)
[2017-09-24] MEDS: HEPARIN 25,000U/0.45% NS 250ML 25,000 UNIT in SODIUM CHLORIDE 0.9% 250ML 0 ML IV SCH ×3 (06:00→17:25)
[2017-09-24] MEDS: CLINDAMYCIN PHOS 900MG/ D5W 50 50 ML IV SCH ×3 (06:56→23:33)
[2017-09-24] MEDS: RISPERIDONE 0.5 MG TAB PO PRN ×2 (08:37→17:35)
[2017-09-24] MEDS: CLOPIDOGREL BISULFATE 75 MG TAB PO SCH (08:37)
[2017-09-24] MEDS: ASPIRIN 81 MG CHEW TAB PO SCH (08:37)
[2017-09-24] MEDS ORDERED: POTASSIUM CHLORIDE 20MEQ/15ML UDC PO ONE (12:15)
[2017-09-24] MEDS ORDERED: HEPARIN 25,000U/0.45% NS 250ML 25,000 UNIT in SODIUM CHLORIDE 0.9% 250ML 0 ML IV SCH (18:35)
[2017-09-24] MEDS: ATORVASTATIN 20 MG TAB PO SCH (21:49)
--- NOTE | 2017-09-24 21:52 | Progress Note ---
DATE: CARDIOLOGY PROGRESS NOTE REASON FOR VISIT: SUBJECTIVE: Remains confused. Some pain to the left lower extremity. TELEMETRY: Episode of sinus bradycardia in the 50s normal sinus rhythm. REVIEW OF SYSTEMS: OBJECTIVE VITAL SIGNS: Temperature 95.8. Heart rate 74. Respiratory rate 20. Blood pressure 109/64 and O2 sats 98% on nasal cannula. GENERAL: No acute distress. Pleasantly confused. NECK: With carotid bruits bilaterally. CHEST: Clear to auscultation bilaterally. CARDIOVASCULAR: Regular rate and rhythm. Normal S1 and S2. No S3, no S4. Systolic ejection murmur 03/11. ABDOMEN: Soft, nontender. EXTREMITIES: Right AKA. Left ogixl-pfu-qtyk cold lower extremity. Nonpalpable dorsalis pedis and posterior tibial pulses on the left. Fifth toe with gangrenous changes. Erythema in the forefoot. CARDIOVASCULAR MEDICATIONS 1. Aspirin 81 mg daily. 2. Clopidogrel 75 mg daily. 3. Atorvastatin 20 mg nightly. LABORATORY WORK: Reviewed. PTT at 45.9. Hemoglobin 11.4, white blood cells 4.5, platelets 188,000. Sodium 140, potassium 3.2, chloride 104, bicarbonate 27, BUN 9, creatinine 0.54, and glucose 85, calcium 8.9, triglycerides 84, total cholesterol 176, LDL 109, HDL 50, TSH 0.5. ASSESSMENT: Discussed at length with patient's bnukskbu-lw-ptg and gbtix-kg-zdotdyqp. Indications, alternatives, risks, and benefits for angiography and possible revascularization of lower extremities has been discussed. After extensive discussion and all questions were answered with patient, patient's family member/sxcmw-hy-yimwfqlp voicing understanding, she gives consent to proceed with angiography and possible revascularization of her left lower extremity. This will be a complex procedure given patient's dementia and , comorbidities and frail state and prior revascularization of various attempts with extensive from inguinal ligament to knee. Will assess construction laborer availability. If possible, will schedule for tomorrow morning, otherwise will arrange for procedure as soon as feasible. Continue current cardiovascular medications. Will follow closely. Job#: [id number] CQ
[2017-09-25] VITALS (9 sets, daily range): BP systolic 97–142; BP diastolic 55–85
[2017-09-25] MEDS ORDERED: HEPARIN 25,000U/0.45% NS 250ML 25,000 UNIT in SODIUM CHLORIDE 0.9% 250ML 0 ML IV SCH ×2 (01:00→05:30)
[2017-09-25] MEDS: RISPERIDONE 0.5 MG TAB PO PRN ×2 (03:58→21:54)
[2017-09-25 05:54] LABS: BASOPHILS % 0.2 % (0.0-1.0); EOSINOPHILS # (AUTO) 0.1 (0.0-0.4); EOSINOPHILS % 1.4 % (0.0-6.0); HEMATOCRIT 34.7 % (34.2-44.1); HEMOGLOBIN 11.3 g/dL (12.0-16.0); LYMPHOCYTES # (AUTO) 1.3 (1.0-3.2); LYMPHOCYTES % 26.9 % (18.0-39.1); MEAN CORPUSCULAR HEMOGLOBIN 30.8 pg (28-32); MEAN CORPUSCULAR HGB CONC 32.6 g/dL (31-35); MEAN CORPUSCULAR VOLUME 94.6 fL (81-99); MONOCYTES # (AUTO) 0.3 (0.2-0.8); MONOCYTES % 6.8 % (4.4-11.3); NEUTROPHILS # (AUTO) 3.1 (2.1-6.9); NEUTROPHILS % 64.5 % (38.7-80.0); PLATELET COUNT 288 x10e3/uL (140-360); RED BLOOD COUNT 3.67 x10e6/uL (3.6-5.1); RED CELL DISTRIBUTION WIDTH 14.4 % (11.7-14.4)
[2017-09-25 06:03] LABS: INR 1.02; PROTHROMBIN TIME 12.6 seconds (11.9-14.5)
[2017-09-25 06:04] LABS: PARTIAL THROMBOPLASTIN TIME 45.4 seconds (23.8-35.5)
[2017-09-25 06:25] LABS: ANION GAP 12.9 mmol/L (8-16); BLOOD UREA NITROGEN 11 mg/dL (7-26); BUN/CREATININE RATIO 20 (6-25); CALCIUM 9.4 mg/dL (8.4-10.2); CARBON DIOXIDE 26 mmol/L (22-29); CHLORIDE 105 mmol/L (98-107); CREATININE, SERUM 0.54 mg/dL (0.57-1.11); EST GLOMERULAR FILTRATION RATE > 60 ML/MIN (60-); GLUCOSE 97 mg/dL (74-118); POTASSIUM 3.9 mmol/L (3.5-5.1); SODIUM 140 mmol/L (136-145)
[2017-09-25] MEDS: CLINDAMYCIN PHOS 900MG/ D5W 50 50 ML IV SCH ×2 (07:11→15:31)
[2017-09-25] MEDS: CLOPIDOGREL BISULFATE 75 MG TAB PO SCH (08:55)
[2017-09-25] MEDS: ASPIRIN 81 MG CHEW TAB PO SCH (08:59)
[2017-09-25] MEDS: BALSAM PERU/CASTOR OIL 60 GM OINT...G. TP SCH ×2 (08:59→16:49)
[2017-09-25] MEDS ORDERED: MIDAZOLAM HCL 2 MG/2 ML VIAL ONE (16:55)
[2017-09-25] MEDS ORDERED: FENTANYL CITRATE/PF 100MCG/2 ML INJ ONE (16:55)
[2017-09-25] MEDS ORDERED: LIDOCAINE HCL 2% LOCAL 20 ML VIAL ONE (16:56)
[2017-09-25] MEDS ORDERED: SODIUM CHLORIDE 0.9% 1000ML 1,000 ML ONE (16:56)
[2017-09-25] MEDS ORDERED: IOPAMIDOL 300MG/ML 100 ML INFUS..BTL IV ONE (16:56)
[2017-09-25] MEDS ORDERED: HEPARIN SOD/SOD CHLORIDE 2,000 ML ONE (16:56)
--- NOTE | 2017-09-25 19:26 | Operative Report ---
DATE OF PROCEDURE: PREOPERATIVE DIAGNOSIS: POSTOPERATIVE DIAGNOSIS: PROCEDURE INDICATION: Ymuys-ap-pxyuxsy limb ischemia with right and left lower extremity. PROCEDURE PLAN: Abdominal aortogram with lower extremity angiography and possible intervention. Procedure was aborted with the following reasons: The patient was brought in the rn cardiac cath for angiography. Initial fluoroscopy revealed extensive stent in place throughout the WHOLE EXTENT of the bilateral iliacs and the bilateral DONOR SPECIALIST, SFA, L popliteal A, s/p right AKA. Previous CT had not reported stents in place. Given full extent of L SFA and L popliteal A occlusion- long segment, options for revascularization via endovascular as well as surgical are unfortunately unavailable. Given these findings, patient with dementia, advanced comorbidities, it was decided at this point no additional revascularization options could be pursued and patient to be considered for hospice versus amputation, AKA versus BKA to the left lower extremity. Extensive discussion with family members including the tydln-ap-miskdimp have been performed. All concerns and questions answered. Job#: [id number] RAMILA
[2017-09-25] MEDS: ATORVASTATIN 20 MG TAB PO SCH (21:00)
[2017-09-26] VITALS (7 sets, daily range): BP systolic 105–123; BP diastolic 57–75
[2017-09-26] MEDS: CLINDAMYCIN PHOS 900MG/ D5W 50 50 ML IV SCH ×4 (00:12→23:32)
[2017-09-26] MEDS: MORPHINE SULFATE 2 MG/ML SYR IV PRN (00:31)
[2017-09-26] MEDS: BALSAM PERU/CASTOR OIL 60 GM OINT...G. TP SCH ×2 (09:00→17:19)
[2017-09-26] MEDS: CLOPIDOGREL BISULFATE 75 MG TAB PO SCH (09:10)
[2017-09-26] MEDS: ASPIRIN 81 MG CHEW TAB PO SCH (09:10)
[2017-09-26] MEDS: METOPROLOL SUCCINATE 25 MG TAB XL PO SCH (09:10)
--- NOTE | 2017-09-26 11:14 | Progress Note ---
DATE: September 25, 2017 CARDIOLOGY PROGRESS NOTE SUBJECTIVE: Confused. OBJECTIVE VITAL SIGNS: Temperature 96.3, heart rate 96, respiratory rate 16, blood pressure 142/84, O2 sat 100% room air. GENERAL: No acute distress and confused. CHEST: Clear to auscultation. CARDIOVASCULAR: Regular rate and rhythm. Normal S1 and S2. ABDOMEN: Soft. EXTREMITIES: No edema. Right AKA. Left lower extremity with cold lower third of leg. Gangrene of 5th toe. Nonpalpable pulses. LABORATORY STUDIES: White blood cells 4.8, hemoglobin 11.3, platelets 288. INR 1. Creatinine 0.5. Glucose 122. TELEMETRY: In sinus rhythm. CARDIOVASCULAR MEDICATIONS: Reviewed. STUDIES: Reviewed. ASSESSMENT: 1. Acute on chronic limb ischemia with left lower extremity threatened limb. 2. Hypertension. 3. Dyslipidemia. 4. Chronic obstructive pulmonary disease. 5. Extensive previous revascularizations with extensive stents throughout whole extent of iliacs and femoral arteries. 6. Advanced dementia. 7. History of right above-knee amputation. RECOMMENDATIONS: Brought to laborer brush clearing today. Fluoroscopy demonstrated complete stenting of bilateral iliacs and femoral arteries with the left zrwtfnn-hn-ienbzaezl segment completely covered with stents. CTA findings previously not reporting stents. However, did reveal occlusion from origin of left SFA to the distal left popliteal at the bifurcation point. Unfortunately, at this point due to a long area of occlusion on previous stents limiting access points, there are no additional revascularization options available. Given patient's advanced dementia and comorbidities, I feel at this point a limited amputation attempt via left BKA versus left AKA should be considered, and surgery consultation is advised. Her risk from perioperative complications from a cardiac standpoint is at least moderate. Perioperative beta blockers are advised and will be initiated low dose. Alternatively, considering hospice care is a reasonable option. Discussed extensively with patient and family members. Power of workers compensation defense attorney involved in the discussion, all questions answered. Patient's family members voiced understanding. We will be available for further questions as needed. Thank you for the opportunity to participate in the care of Ms. Yo. Job#: [id number] MAURY
[2017-09-26] MEDS: RISPERIDONE 0.5 MG TAB PO PRN (14:18)
[2017-09-26] MEDS: ATORVASTATIN 20 MG TAB PO SCH (22:09)
[2017-09-27] VITALS (7 sets, daily range): BP systolic 92–144; BP diastolic 58–75
[2017-09-27] MEDS: RISPERIDONE 0.5 MG TAB PO PRN ×2 (02:35→18:18)
[2017-09-27] MEDS: CLINDAMYCIN PHOS 900MG/ D5W 50 50 ML IV SCH ×3 (07:39→22:16)
[2017-09-27] MEDS ORDERED: SODIUM CHLORIDE 0.9% 250ML 250 ML ONE (08:00)
[2017-09-27] MEDS: CLOPIDOGREL BISULFATE 75 MG TAB PO SCH (09:00)
[2017-09-27] MEDS: METOPROLOL SUCCINATE 25 MG TAB XL PO SCH (09:00)
[2017-09-27] MEDS: BALSAM PERU/CASTOR OIL 60 GM OINT...G. TP SCH ×2 (09:00→17:00)
[2017-09-27] MEDS: ASPIRIN 81 MG CHEW TAB PO SCH (09:00)
--- NOTE | 2017-09-27 13:57 | Consultation ---
DATE OF CONSULTATION: September 26, 2017 REASON FOR CONSULTATION: Left foot cellulitis. HISTORY OF PRESENTING ILLNESS: This is a 76-year-old female with past medical history of Alzheimer's disease, hypertension, dementia, hyperlipidemia, peripheral arterial disease, and COPD. She was admitted on 09/23/2017 for a worsening redness to her left foot with gangrenous wounds and ulcerations. She was seen by Dr. Conde and was taken for an angiogram on Monday, which revealed severe occlusions and there were no additional revascularization options available. Patient is seen at bedside today. No family members are present. Patient appears to be in no apparent distress. No other pedal complaints. PAST MEDICAL HISTORY: Alzheimer's dementia, hypertension, hyperlipidemia, peripheral arterial disease, and chronic obstructive pulmonary disease. SURGICAL HISTORY: Multiple revascularizations and stents to bilateral lower extremities and right above the knee amputation. SOCIAL HISTORY: Patient has dementia, lives with family. Continues to smoke approximately 1 pack per day. Denies any alcohol or illicit drug usage. REVIEW OF SYSTEMS: Patient currently denies nausea, vomiting, fevers, chills, chest pain, or shortness of breath. PHYSICAL EXAMINATION GENERAL: The patient is alert and oriented, in no apparent distress. VITAL SIGNS: Temperature today is 96.1, heart rate 79, respiratory rate is 16, blood pressure 116/72, and pulse ox is 99% on room air. PROBLEM-FOCUSED LOWER EXTREMITY PHYSICAL EXAM VASCULAR: Dorsalis pedis and posterior tibial pulses are nonpalpable. Capillary refill time is delayed to all digits 1 through 5. The left hallux is cyanotic and mottled with greater than 7 seconds of capillary refill time. Necrotic eschar is noted to the dorsal aspect of the patient's left proximal interphalangeal joint with periwound erythema and edema. Another ulceration is noted to the dorsal aspect of the patient's left second digit. Erythema is noted to the level of the mid foot. There is no warmth distal to the ankle joint. The feet are cool to the touch. NEUROLOGICAL: Sensation is diminished to light touch to the left foot. MUSCULOSKELETAL: Right above the knee amputation, otherwise deferred. LABORATORY DATA: White blood cell count is 4.8, hemoglobin 11.3, hematocrit 34.7, and platelet count 288. Sodium 140, potassium 3.9, chloride 105, CO2 of 26, BUN 11, creatinine 0.54, glucose 122. ASSESSMENT 1. Severe peripheral arterial disease with dry gangrene and ischemic necrosis to the distal aspect of the patient's left foot. 2. Dementia and Alzheimer's disease. 3. Hypertension. 4. Chronic obstructive pulmonary disease. 5. Right above-knee amputation. PLAN: Patient was seen and evaluated. Discussed the condition and treatment options with patient in detail. No family members were there at bedside. Patient does have severe peripheral arterial disease and there was an attempt at revascularization and stenting on Monday, but due to the severity of the occlusions, no revascularization options were available. At this point, the foot was dressed with a Betadine wet-to-dry dressing to dry the wounds. At this point, agree with Dr. Conde's recommendations for hospice versus a more proximal amputation. A transmetatarsal amputation to this foot would likely fail due to severe occlusions proximally. General surgery has been consulted for surgical evaluation. The podiatry service will continue to monitor as an inpatient. Job#: [id number] SERA
--- NOTE | 2017-09-27 14:03 | Progress Note ---
DATE: September 26, 2017 CARDIOLOGY PROGRESS NOTE SUBJECTIVE: Confused. No complaints. OBJECTIVE VITAL SIGNS: Reviewed. Afebrile. Heart rate in the 80s. Blood pressure 104/68. Respiratory rate 18. GENERAL: No acute distress, pleasantly confused. CHEST: Clear to auscultation. CARDIOVASCULAR: Regular rate and rhythm. Normal S1 and S2. No S3 or S4. ABDOMEN: Soft. EXTREMITIES: Right AKA. Left lower extremity cold in the distal third. Abnormal dorsalis pedis and posterior tibial pulses. ASSESSMENT 1. Severe peripheral vascular disease with pjrcy-qi-grcyjtg leg ischemia present in the left lower extremity. No options for revascularization both endovascularly or surgically given extensive tenting of the full extent of the iliac as well as the femoral arteries seen to the distal segment of the left popliteal artery with long segment occlusion of the left SFA from origin to the distal left popliteal on CT. 2. Hypertension. 3. Dementia. RECOMMENDATIONS: 1. Limited options. Consider amputation, left AKA. 2. Perioperative beta blockers with least moderate risk for adverse cardiovascular outcome related to surgery. 3. Overall guarded prognosis. 4. Consideration for hospice is an alternative. Job#: [id number]
--- NOTE | 2017-09-27 19:43 | Progress Note ---
DATE: September 27, 2017 CARDIOLOGY PROGRESS NOTE SUBJECTIVE: Questionably confused. No complaints. OBJECTIVE VITAL SIGNS: Afebrile, blood pressure 124/68, heart rate 64, respiratory rate 18. GENERAL: No acute distress, alert, active. CHEST: Clear to auscultation. CARDIOVASCULAR: Regular rate and rhythm. Normal S1 and S2. No S3 or S4. ABDOMEN: Soft. EXTREMITIES: Right AKA. Left lower extremity cold with gangrenous changes to the left foot. LABORATORY DATA: Reviewed. STUDIES: Reviewed. CARDIOVASCULAR MEDICATIONS: Reviewed and include metoprolol, aspirin, and statin. ASSESSMENT AND PLAN 1. Severe peripheral arterial disease with gangrenous changes to the left leg. Options include left ujsqr-gmr-mlos amputation with at least moderate risk for adverse cardiovascular outcome with perioperative beta rebeca versus hospice. Discussed at length with the patient's family members. 2. Advanced dementia. Continue supportive care. 3. Continue cardiovascular medications. PROGNOSIS: Guarded. Job#: [id number]
[2017-09-27] MEDS: ATORVASTATIN 20 MG TAB PO SCH (21:00)
[2017-09-28] VITALS (11 sets, daily range): BP systolic 87–142; BP diastolic 48–84
[2017-09-28] MEDS: CLINDAMYCIN PHOS 900MG/ D5W 50 50 ML IV SCH (08:00)
[2017-09-28] MEDS: ASPIRIN 81 MG CHEW TAB PO SCH (09:00)
[2017-09-28] MEDS: BALSAM PERU/CASTOR OIL 60 GM OINT...G. TP SCH ×2 (09:00→17:00)
[2017-09-28] MEDS: METOPROLOL SUCCINATE 25 MG TAB XL PO SCH (09:00)
[2017-09-28] MEDS: CLOPIDOGREL BISULFATE 75 MG TAB PO SCH (09:00)
[2017-09-28] MEDS: MORPHINE SULFATE 2 MG/ML SYR IV PRN ×2 (13:46→23:11)
--- NOTE | 2017-09-28 14:03 | Operative Report ---
DATE OF PROCEDURE: NO DICTATION, LENGTH 7 SECONDS. Job#: [id number] MH
--- NOTE | 2017-09-28 14:23 | Operative Report ---
DATE OF PROCEDURE: September 28, 2017 PREOPERATIVE DIAGNOSIS: Gangrenous changes of left foot secondary to nonreconstructible peripheral vascular disease. POSTOPERATIVE DIAGNOSIS: Gangrenous changes of left foot secondary to nonreconstructible peripheral vascular disease. OPERATION PERFORMED: Left above-knee amputation. FREELANCE PROGRAMMER/APP DEVELOPER: Lucia GORDON. ANESTHESIA: General endotracheal. COMPLICATIONS: None. ESTIMATED BLOOD LOSS: 100 mL. DESCRIPTION OF PROCEDURE: With the patient lying in bed in the supine position under good general anesthesia, the left leg was prepped with Betadine solution and draped in the usual manner. A fishmouth incision was then made in the distal left thigh, carried down through the subcutaneous tissue and through the superficial fascia. The muscle girdles were then slowly and carefully divided with the cautery. The femur was then cleared roughly about an inch above the skin incision and was then divided with the Gigli saw. The vascular bundle was then identified. There was a stent contained within the artery. The vascular bundle was then divided between silk ties, and the posterior musculature was then sharply divided. Hemostasis was ascertained, and then the wound was closed in layers. The fascia was reapproximated with interrupted sutures of 2-0 Vicryl, and the skin was closed with interrupted vertical mattress sutures of 3-0 silk. A dressing was applied. The sponge, lap and needle count was correct. The patient tolerated the procedure well and returned to the recovery room in stable condition. Job#: [id number] EV
[2017-09-28] MEDS ORDERED: DEXAMETHASONE SOD PHOS INJ 4 MG/ML VIAL ONE (14:37)
[2017-09-28] MEDS ORDERED: PROPOFOL IV EMULSION 10 MG/ML 20 ML VIAL ONE (14:37)
[2017-09-28] MEDS ORDERED: SEVOFLURANE INHAL SOLN 250 ML PEN BTL ONE (14:37)
[2017-09-28] MEDS ORDERED: EPHEDRINE SULFATE INJ 50 MG/10 ML SYR ONE (14:37)
[2017-09-28] MEDS ORDERED: ROCURONIUM BROMIDE 10 MG/ML 5ML VIAL ONE (14:37)
[2017-09-28] MEDS ORDERED: ONDANSETRON HCL INJ 2 MG/ML VIAL ONE (14:37)
[2017-09-28] MEDS ORDERED: LIDOCAINE HCL 2% LOCAL INJ 5 ML SDV VIAL INJ ONE (14:37)
[2017-09-28] MEDS: ACETAMINOPHEN 1000 MG/100 ML IV PRN ×2 (15:00→23:33)
--- NOTE | 2017-09-28 16:29 | Progress Note ---
DATE: September 28, 2017 CARDIOLOGY PROGRESS NOTE SUBJECTIVE: Moderate discomfort status post left AKA today by Dr. Yusuf. Pain management ongoing. Discussed with nursing staff. OBJECTIVE VITAL SIGNS: Blood pressure 142/86, heart rate 68, respiratory rate 22, afebrile. GENERAL: In mild distress. CHEST: Clear to auscultation. CARDIOVASCULAR: Regular rate and rhythm. Normal S1 and S2. No S3, no S4. ABDOMEN: Soft. EXTREMITIES: Bilateral AKA. LAB WORK: Reviewed. MEDICATIONS: Reviewed. ASSESSMENT 1. Status post left above-knee amputation for severe nonrevascularizable peripheral arterial disease with residual iliac stents covering the full extent of bilateral iliac arteries. 1. Dementia, advanced. 2. Dyslipidemia and hypertension. 3. Scar to the left neck likely from prior CEA. RECOMMENDATIONS: Pain control today. Resume antiplatelet therapy, if no active bleeding, starting tomorrow. Continue perioperative beta reebca and statin. Job#: [id number] EV
[2017-09-28] MEDS ORDERED: FENTANYL CITRATE/PF 100MCG/2 ML INJ ONE (17:47)
[2017-09-28] MEDS ORDERED: CEFOXITIN 1GM/ DEXTROSE 50ML 50 ML IV SCH (18:00)
[2017-09-28] MEDS: CEFOXITIN SOD 1 GM VIAL IV SCH ×2 (18:00→23:05)
[2017-09-28] MEDS: ATORVASTATIN 20 MG TAB PO SCH (21:00)
[2017-09-28] MEDS: SODIUM CHLORIDE 0.9% 1000ML 1,000 ML IV SCH (23:00)
[2017-09-29] VITALS (8 sets, daily range): BP systolic 113–145; BP diastolic 56–85
[2017-09-29] MEDS: SODIUM CHLORIDE 0.9% 1000ML 1,000 ML IV SCH ×2 (02:09→15:43)
[2017-09-29] MEDS: CEFOXITIN SOD 1 GM VIAL IV SCH ×4 (05:31→23:58)
[2017-09-29 05:51] LABS: BASOPHILS % 0.2 % (0.0-1.0); EOSINOPHILS % 0.2 % (0.0-6.0); HEMATOCRIT 28.7 % (34.2-44.1); HEMOGLOBIN 9.3 g/dL (12.0-16.0); LYMPHOCYTES # (AUTO) 1.7 (1.0-3.2); MEAN CORPUSCULAR HEMOGLOBIN 30.9 pg (28-32); MEAN CORPUSCULAR HGB CONC 32.4 g/dL (31-35); MEAN CORPUSCULAR VOLUME 95.3 fL (81-99); MONOCYTES # (AUTO) 0.9 (0.2-0.8); MONOCYTES % 9.5 % (4.4-11.3); NEUTROPHILS # (AUTO) 6.5 (2.1-6.9); NEUTROPHILS % 70.8 % (38.7-80.0); PLATELET COUNT 275 x10e3/uL (140-360); RED BLOOD COUNT 3.01 x10e6/uL (3.6-5.1); RED CELL DISTRIBUTION WIDTH 14.6 % (11.7-14.4)
[2017-09-29 06:30] LABS: BLOOD UREA NITROGEN 10 mg/dL (7-26); BUN/CREATININE RATIO 20 (6-25); CALCIUM 8.5 mg/dL (8.4-10.2); CARBON DIOXIDE 21 mmol/L (22-29); CHLORIDE 108 mmol/L (98-107); CREATININE, SERUM 0.51 mg/dL (0.57-1.11); EST GLOMERULAR FILTRATION RATE > 60 ML/MIN (60-); GLUCOSE 108 mg/dL (74-118); SODIUM 138 mmol/L (136-145)
[2017-09-29] MEDS: METOPROLOL SUCCINATE 25 MG TAB XL PO SCH (09:16)
[2017-09-29] MEDS: CLOPIDOGREL BISULFATE 75 MG TAB PO SCH (09:16)
[2017-09-29] MEDS: BALSAM PERU/CASTOR OIL 60 GM OINT...G. TP SCH ×2 (10:08→18:05)
[2017-09-29] MEDS: MORPHINE SULFATE 2 MG/ML SYR IV PRN (10:52)
[2017-09-29] MEDS: HYDROCODONE/APAP 7.5MG-325MG 1 EA TAB PO PRN (14:09)
[2017-09-29] MEDS: ACETAMINOPHEN 1000 MG/100 ML IV PRN (17:36)
[2017-09-29] MEDS: ATORVASTATIN 20 MG TAB PO SCH (21:00)
--- NOTE | 2017-09-29 21:46 | Progress Note ---
DATE: September 29, 2017 CARDIOLOGY PROGRESS NOTE SUBJECTIVE: Sleeping comfortably today. OBJECTIVE VITAL SIGNS: Temperature 97.7, heart rate 79, respiratory rate 18, blood pressure 118/56, O2 sat 94% on room air. GENERAL: Sleeping comfortably. CHEST: Clear to auscultation. CARDIOVASCULAR: Regular rate and rhythm. Normal S1 and S2. No S3, no S4. No murmurs or rubs. ABDOMEN: Soft, nontender. EXTREMITIES: Bilateral AKA. CARDIOVASCULAR MEDICATIONS: Reviewed. 1. Cefoxitin 1 g IV q.6 h. 2. Metoprolol succinate 12.5 mg daily. 3. Clopidogrel 75 mg daily. 4. Atorvastatin 20 mg nightly. STUDIES: Reviewed. White blood cells 9.1, hemoglobin 9.3 down from 11.3, platelets 275,000. INR 1 that was from 09/25. Sodium 138, potassium 4, chloride 108, bicarbonate 21, BUN 10, creatinine 0.5, glucose 108, calcium 8.5. ASSESSMENT 1. Severe peripheral arterial disease, status post bilateral above-knee amputation with left above-knee amputation, postop day 1. 2. Whole extent of iliacs are stented, so femoral arteries. 3. Advanced dementia. 4. Dyslipidemia. 5. Hypertension. 6. Scar to left neck likely from prior CEA. PLAN 1. Continue current cardiovascular medications. 2. Pain management seems to be working well. 3. Will be available. Please call with any questions. Job#: [id number]
[2017-09-30] VITALS (7 sets, daily range): BP systolic 107–158; BP diastolic 56–71
[2017-09-30] MEDS: SODIUM CHLORIDE 0.9% 1000ML 1,000 ML IV SCH ×2 (04:49→16:19)
[2017-09-30] MEDS: CEFOXITIN SOD 1 GM VIAL IV SCH ×4 (05:25→23:33)
[2017-09-30] MEDS: BALSAM PERU/CASTOR OIL 60 GM OINT...G. TP SCH ×2 (08:52→18:19)
[2017-09-30] MEDS: CLOPIDOGREL BISULFATE 75 MG TAB PO SCH (08:52)
[2017-09-30] MEDS: METOPROLOL SUCCINATE 25 MG TAB XL PO SCH (08:52)
[2017-09-30] MEDS: HYDROCODONE/APAP 7.5MG-325MG 1 EA TAB PO PRN ×3 (08:53→17:13)
[2017-09-30] MEDS: ACETAMINOPHEN 1000 MG/100 ML IV PRN (16:19)
[2017-09-30] MEDS: RISPERIDONE 0.5 MG TAB PO PRN (17:13)
--- NOTE | 2017-09-30 18:18 | Progress Note ---
DATE: September 30, 2017 CARDIOLOGY PROGRESS NOTE SUBJECTIVE: No complaints other than pain to surgical site. OBJECTIVE VITAL SIGNS: Temperature 98 degrees, heart rate 71, respiratory rate 16, blood pressure 107/56, O2 sat 96% on room air. GENERAL: No acute distress. Alert. NECK: No JVD. CHEST: Clear to auscultation. CARDIOVASCULAR: Regular rate and rhythm. Normal S1 and S2. ABDOMEN: Soft. EXTREMITIES: Bilateral AKA. CARDIOVASCULAR MEDICATIONS: Metoprolol succinate 2.5 mg daily, clopidogrel 75 mg daily, atorvastatin 20 mg nightly. TELEMETRY: Normal sinus rhythm. LABORATORY STUDIES: Reviewed. White cells 9.1, hemoglobin 9.3, platelets 275,000. INR 1. Sodium 138, potassium 4, chloride 108, bicarbonate 21, BUN 10, creatinine 0.5. Glucose 108. Calcium 8.5. ASSESSMENT: 1. Peripheral arterial disease, status post bilateral AKA. 2. Hypertension. 3. Dyslipidemia. 4. Dementia. PLAN: 1. Continue current cardiovascular medications. 2. Continue pain control. Job#: [id number]
[2017-09-30] MEDS: ATORVASTATIN 20 MG TAB PO SCH (21:00)
[2017-10-01] VITALS: BP 110/62
[2017-10-01] MEDS: LORAZEPAM INJ 2 MG/ML VIAL IV PRN ×2 (01:00→13:19)
[2017-10-01 04:00] VITALS: BP 120/60
[2017-10-01] MEDS: CEFOXITIN SOD 1 GM VIAL IV SCH ×4 (05:17→23:43)
[2017-10-01] MEDS: SODIUM CHLORIDE 0.9% 1000ML 1,000 ML IV SCH ×2 (05:51→19:50)
[2017-10-01 07:48] VITALS: BP 142/69
[2017-10-01] MEDS: METOPROLOL SUCCINATE 25 MG TAB XL PO SCH (08:55)
[2017-10-01] MEDS: HYDROCODONE/APAP 7.5MG-325MG 1 EA TAB PO PRN ×3 (08:55→23:44)
[2017-10-01] MEDS: CLOPIDOGREL BISULFATE 75 MG TAB PO SCH (08:55)
[2017-10-01] MEDS: BALSAM PERU/CASTOR OIL 60 GM OINT...G. TP SCH ×2 (08:58→17:33)
[2017-10-01 15:43] VITALS: BP 111/58
--- NOTE | 2017-10-01 17:34 | Progress Note ---
DATE: October 01, 2017 CARDIOLOGY PROGRESS NOTE SUBJECTIVE: Sleeping comfortably, seems comfortable today. OBJECTIVE VITAL SIGNS: Temperature 96.3, heart rate 71, respiratory rate 18, blood pressure 142/69, O2 sat 94% on room air. GENERAL: No acute distress. Alert. NECK: No JVD. CHEST: Clear to auscultation. CARDIOVASCULAR: Regular rate and rhythm. S1 and S2. ABDOMEN: Soft. EXTREMITIES: Bilateral AKA. CARDIOVASCULAR MEDICATIONS: Reviewed. Metoprolol succinate 12.5 mg daily. Clopidogrel 75 mg daily. Atorvastatin 20 mg daily. LABORATORY DATA: Reviewed and none for today. TELEMETRY: Reviewed. In normal sinus rhythm. ASSESSMENT: 1. Status post left kpqtq-ouvt-alxhebxblr with history of right timbh-fnvw-nmgdeidvkf. 2. Hypertension. 3. Dyslipidemia. 4. Dementia. 5. Severe peripheral arterial disease with complete stenting of the full range of iliac and femoral arteries, previous interventions. Job#: [id number]
[2017-10-01 20:00] VITALS: BP 115/68
[2017-10-01] MEDS: ATORVASTATIN 20 MG TAB PO SCH (20:57)
[2017-10-01 21:14] VITALS: BP 115/68
[2017-10-02] VITALS (7 sets, daily range): BP systolic 124–166; BP diastolic 61–86
[2017-10-02] MEDS: CEFOXITIN SOD 1 GM VIAL IV SCH ×3 (05:09→17:45)
[2017-10-02] MEDS: HYDROCODONE/APAP 7.5MG-325MG 1 EA TAB PO PRN ×4 (08:03→21:44)
[2017-10-02] MEDS: CLOPIDOGREL BISULFATE 75 MG TAB PO SCH (08:30)
[2017-10-02] MEDS: METOPROLOL SUCCINATE 25 MG TAB XL PO SCH (08:30)
[2017-10-02] MEDS: BALSAM PERU/CASTOR OIL 60 GM OINT...G. TP SCH ×2 (09:00→17:00)
[2017-10-02] MEDS: SODIUM CHLORIDE 0.9% 1000ML 1,000 ML IV SCH (10:09)
--- NOTE | 2017-10-02 11:37 | Progress Note ---
DATE: October 02, 2017 CARDIOLOGY PROGRESS NOTE SUBJECTIVE: No complaints. OBJECTIVE VITAL SIGNS: Temperature 97.9, heart rate 71, respiratory rate 22, blood pressure 166/86 down to 124/81, O2 sat 97% on room air. GENERAL: No acute distress, alert. NECK: No JVD. CHEST: Clear to auscultation. CARDIOVASCULAR: Regular rate and rhythm. Normal S1 and S2. ABDOMEN: Soft. EXTREMITIES: Bilateral AKA. CARDIOVASCULAR MEDICATIONS 1. Metoprolol succinate 12.5 mg daily. 2. Clopidogrel 75 mg daily. 3. Atorvastatin 20 mg q.h.s. LABORATORY STUDIES: Reviewed. None available for today. TELEMETRY: Reviewed, in normal sinus rhythm. ASSESSMENT 1. Status post left above-knee amputation with history of right above-knee amputation. 2. Hypertension. 3. Dyslipidemia. 4. Dementia. RECOMMENDATIONS: Up-titrate metoprolol. Continue rest of cardiovascular medications. Job#: [id number] VAS
[2017-10-02] MEDS: ATORVASTATIN 20 MG TAB PO SCH (21:00)
[2017-10-03] VITALS (8 sets, daily range): BP systolic 123–161; BP diastolic 58–72
[2017-10-03] MEDS: LORAZEPAM INJ 2 MG/ML VIAL IV PRN (01:30)
[2017-10-03 05:52] LABS: BASOPHILS % 0.5 % (0.0-1.0); EOSINOPHILS # (AUTO) 0.2 (0.0-0.4); EOSINOPHILS % 3.1 % (0.0-6.0); HEMATOCRIT 25.5 % (34.2-44.1); HEMOGLOBIN 8.3 g/dL (12.0-16.0); LYMPHOCYTES # (AUTO) 1.8 (1.0-3.2); LYMPHOCYTES % 27.8 % (18.0-39.1); MEAN CORPUSCULAR HEMOGLOBIN 31.2 pg (28-32); MEAN CORPUSCULAR HGB CONC 32.5 g/dL (31-35); MEAN CORPUSCULAR VOLUME 95.9 fL (81-99); MONOCYTES # (AUTO) 0.4 (0.2-0.8); NEUTROPHILS % 62.1 % (38.7-80.0); PLATELET COUNT 379 x10e3/uL (140-360); RED BLOOD COUNT 2.66 x10e6/uL (3.6-5.1); RED CELL DISTRIBUTION WIDTH 14.9 % (11.7-14.4)
[2017-10-03 06:10] LABS: ANION GAP 10.3 mmol/L (8-16); BLOOD UREA NITROGEN < 5 mg/dL (7-26); CALCIUM 8.2 mg/dL (8.4-10.2); CARBON DIOXIDE 23 mmol/L (22-29); CHLORIDE 109 mmol/L (98-107); CREATININE, SERUM 0.43 mg/dL (0.57-1.11); EST GLOMERULAR FILTRATION RATE > 60 ML/MIN (60-); GLUCOSE 85 mg/dL (74-118); POTASSIUM 3.3 mmol/L (3.5-5.1); SODIUM 139 mmol/L (136-145)
[2017-10-03 06:13] LABS: BUN/CREATININE RATIO 12 (6-25)
[2017-10-03] MEDS: SODIUM CHLORIDE 0.9% 1000ML 1,000 ML IV SCH ×2 (06:27→12:49)
[2017-10-03] MEDS: CEFOXITIN SOD 1 GM VIAL IV SCH ×4 (06:35→18:00)
[2017-10-03] MEDS ORDERED: POTASSIUM CHLORIDE 10 MEQ TABCR PO ONE (07:45)
[2017-10-03] MEDS: CLOPIDOGREL BISULFATE 75 MG TAB PO SCH (08:15)
[2017-10-03] MEDS: METOPROLOL SUCCINATE 25 MG TAB XL PO SCH (08:15)
[2017-10-03 08:26] LABS: FERRITIN 189.19 ng/mL (4.63-204.00)
[2017-10-03 08:33] LABS: ANISOCYTOSIS SLIGHT; HYPOCHROMASIA SLIGHT; PLATELET ESTIMATE ADEQUATE; PLATELET MORPHOLOGY COMMENT NORMAL; RBC MORPHOLOGY COMMENT NORMAL
[2017-10-03] MEDS: BALSAM PERU/CASTOR OIL 60 GM OINT...G. TP SCH ×2 (09:00→17:00)
[2017-10-03] MEDS: HYDROCODONE/APAP 7.5MG-325MG 1 EA TAB PO PRN ×3 (09:06→21:40)
--- NOTE | 2017-10-03 14:27 | Progress Note ---
DATE: October 03, 2017 CARDIOLOGY PROGRESS NOTE SUBJECTIVE: No complaints. Pain adequately controlled. OBJECTIVE VITAL SIGNS: Temperature 99.7, heart rate 77, respiratory rate 18, blood pressure 123/58, and O2 sat 98% on room air. GENERAL: No acute distress, alert and active. NECK: No JVD. CHEST: Clear to auscultation. CARDIOVASCULAR: Regular rate and rhythm. S1 and S2. No S3, no S4. No murmurs or rubs. ABDOMEN: Soft, nontender, nondistended. EXTREMITIES: Bilateral AKA with left stump covered with dressings. CARDIOVASCULAR MEDICATIONS 1. Metoprolol succinate 25 mg daily. 2. Clopidogrel 75 mg daily. 3. Atorvastatin 20 mg q.h.s. LABORATORY DATA: Studies reviewed. White blood cell 6.4, hemoglobin 8.3, platelets 379,000. Creatinine 0.4, potassium 3.3, chloride 109, bicarbonate 23, glucose 85. Iron 35, TIBC 209, percent saturation 17, transferrin 149, and ferritin 189. TELEMETRY: Normal sinus rhythm. ASSESSMENT 1. Status post left above-knee amputation with history of right above-knee amputation. 2. Hypertension. 3. Dyslipidemia. 4. Dementia. RECOMMENDATIONS: Metoprolol has been up-titrated. Blood pressure seems to be improving. Continue rest of cardiovascular medications. Job#: [id number]
[2017-10-03] MEDS: ATORVASTATIN 20 MG TAB PO SCH (21:39)
[2017-10-04] VITALS (8 sets, daily range): BP systolic 108–139; BP diastolic 54–64
[2017-10-04] MEDS: SODIUM CHLORIDE 0.9% 1000ML 1,000 ML IV SCH ×2 (03:03→18:29)
[2017-10-04] MEDS: CEFOXITIN SOD 1 GM VIAL IV SCH ×4 (06:46→17:35)
[2017-10-04] MEDS: CLOPIDOGREL BISULFATE 75 MG TAB PO SCH (09:10)
[2017-10-04] MEDS: HYDROCODONE/APAP 7.5MG-325MG 1 EA TAB PO PRN ×2 (09:10→18:29)
[2017-10-04] MEDS: BALSAM PERU/CASTOR OIL 60 GM OINT...G. TP SCH ×2 (09:10→17:35)
[2017-10-04] MEDS: METOPROLOL SUCCINATE 25 MG TAB XL PO SCH (09:10)
[2017-10-04] MEDS: LORAZEPAM INJ 2 MG/ML VIAL IV PRN ×2 (12:10→21:00)
[2017-10-04] MEDS ORDERED: SODIUM CHLORIDE 0.9% 250ML 250 ML ONE (14:56)
[2017-10-04] MEDS: RISPERIDONE 0.5 MG TAB PO PRN (18:29)
[2017-10-04] MEDS: ATORVASTATIN 20 MG TAB PO SCH (20:57)
--- NOTE | 2017-10-04 22:38 | Progress Note ---
DATE: CARDIOLOGY PROGRESS NOTE SUBJECTIVE: No complaints. Pain adequately controlled. MEDICATIONS: Reviewed. Continue current cardiovascular medications. OBJECTIVE: VITAL SIGNS: Reviewed and stable. GENERAL: In no acute distress, alert. NECK: No JVD. CHEST: Clear to auscultation. CARDIOVASCULAR: Regular rate and rhythm. Normal S1 and S2. No S3, no S4. ABDOMEN: Soft. EXTREMITIES: Bilateral AKA. ASSESSMENT: 1. Peripheral arterial disease, status post above-knee amputation left with history of right above-knee amputation. 2. Dyslipidemia. 3. Hypertension. 4. Anemia. 5. Dementia. RECOMMENDATIONS: Continue current cardiovascular medications. Anticipate transfer out of hospital soon. Job#: [id number]
[2017-10-05] VITALS (7 sets, daily range): BP systolic 103–166; BP diastolic 53–79
[2017-10-05] MEDS: HYDROCODONE/APAP 7.5MG-325MG 1 EA TAB PO PRN ×3 (05:13→14:16)
[2017-10-05 05:21] LABS: BASOPHILS % 0.3 % (0.0-1.0); EOSINOPHILS # (AUTO) 0.2 (0.0-0.4); EOSINOPHILS % 2.9 % (0.0-6.0); HEMATOCRIT 26.2 % (34.2-44.1); HEMOGLOBIN 8.2 g/dL (12.0-16.0); LYMPHOCYTES # (AUTO) 1.3 (1.0-3.2); LYMPHOCYTES % 20.9 % (18.0-39.1); MEAN CORPUSCULAR HEMOGLOBIN 30.6 pg (28-32); MEAN CORPUSCULAR HGB CONC 31.3 g/dL (31-35); MEAN CORPUSCULAR VOLUME 97.8 fL (81-99); MONOCYTES # (AUTO) 0.4 (0.2-0.8); MONOCYTES % 6.3 % (4.4-11.3); NEUTROPHILS # (AUTO) 4.3 (2.1-6.9); NEUTROPHILS % 68.6 % (38.7-80.0); PLATELET COUNT 492 x10e3/uL (140-360); RED BLOOD COUNT 2.68 x10e6/uL (3.6-5.1); RED CELL DISTRIBUTION WIDTH 15.3 % (11.7-14.4)
[2017-10-05] MEDS: CEFOXITIN SOD 1 GM VIAL IV SCH ×3 (06:13→12:57)
[2017-10-05] MEDS: SODIUM CHLORIDE 0.9% 1000ML 1,000 ML IV SCH (07:24)
[2017-10-05 07:53] LABS: ANION GAP 12.7 mmol/L (8-16); BLOOD UREA NITROGEN < 5 mg/dL (7-26); BUN/CREATININE RATIO 10 (6-25); CALCIUM 8.7 mg/dL (8.4-10.2); CARBON DIOXIDE 25 mmol/L (22-29); CHLORIDE 108 mmol/L (98-107); CREATININE, SERUM 0.51 mg/dL (0.57-1.11); EST GLOMERULAR FILTRATION RATE > 60 ML/MIN (60-); GLUCOSE 93 mg/dL (74-118); POTASSIUM 3.7 mmol/L (3.5-5.1); SODIUM 142 mmol/L (136-145)
[2017-10-05] MEDS: METOPROLOL SUCCINATE 25 MG TAB XL PO SCH (08:29)
[2017-10-05] MEDS: BALSAM PERU/CASTOR OIL 60 GM OINT...G. TP SCH ×2 (08:29→16:48)
[2017-10-05] MEDS: CLOPIDOGREL BISULFATE 75 MG TAB PO SCH (08:29)
[2017-10-05] MEDS: LORAZEPAM INJ 2 MG/ML VIAL IV PRN ×2 (15:42→23:50)
[2017-10-05] MEDS: RISPERIDONE 0.5 MG TAB PO PRN (16:48)
[2017-10-05] MEDS ORDERED: SODIUM CHLORIDE 0.9% 1000ML 1,000 ML IV SCH (18:00)
--- NOTE | 2017-10-05 18:59 | Progress Note ---
DATE: October 05, 2017 CARDIOLOGY PROGRESS NOTE SUBJECTIVE: No complaints. Confused. OBJECTIVE VITAL SIGNS: Reviewed and stable. GENERAL: No acute distress. Alert. NECK: No JVD. CHEST: Clear to auscultation. CARDIOVASCULAR: Regular rate and rhythm, normal S1 and S2. No S3, no S4. ABDOMEN: Soft. EXTREMITIES: Bilateral AKA. CARDIOVASCULAR MEDICATIONS: Reviewed. STUDIES: Reviewed. ASSESSMENT 1. Status post left above-knee amputation. 2. Peripheral arterial disease with extensive stenting of the iliac arteries and femoral arteries, status post bilateral above-knee amputation. 3. Dementia. 4. Hypertension. 5. Dyslipidemia. RECOMMENDATIONS: Continue current cardiovascular medications including antiplatelets, statin and antihypertensives. Wound care management of the stump site deferred to surgery. Job#: [id number]
[2017-10-05] MEDS: ATORVASTATIN 20 MG TAB PO SCH (21:00)
[2017-10-06] VITALS: BP 150/71
[2017-10-06 04:00] VITALS: BP 171/74
[2017-10-06 06:18] LABS: ANION GAP 12.8 mmol/L (8-16); BLOOD UREA NITROGEN < 5 mg/dL (7-26); CALCIUM 8.5 mg/dL (8.4-10.2); CARBON DIOXIDE 23 mmol/L (22-29); CHLORIDE 105 mmol/L (98-107); CREATININE, SERUM 0.45 mg/dL (0.57-1.11); EST GLOMERULAR FILTRATION RATE > 60 ML/MIN (60-); GLUCOSE 99 mg/dL (74-118); POTASSIUM 3.8 mmol/L (3.5-5.1); SODIUM 137 mmol/L (136-145)
[2017-10-06 06:19] LABS: BUN/CREATININE RATIO 11 (6-25)
[2017-10-06 07:25] VITALS: BP 171/74
[2017-10-06 08:00] VITALS: BP 161/77
[2017-10-06] MEDS: METOPROLOL SUCCINATE 25 MG TAB XL PO SCH (08:45)
[2017-10-06] MEDS: CLOPIDOGREL BISULFATE 75 MG TAB PO SCH (08:45)
[2017-10-06] MEDS: BALSAM PERU/CASTOR OIL 60 GM OINT...G. TP SCH ×2 (09:00→17:00)
[2017-10-06 12:00] VITALS: BP 149/70
--- NOTE | 2017-10-06 12:37 | Progress Note ---
DATE: October 06, 2017 CARDIOLOGY PROGRESS NOTE SUBJECTIVE: No complaints. Stump site healing well with mild areas of erythema at the surgical site. No secretions. OBJECTIVE: VITAL SIGNS: Temperature 96.4, heart rate 77, respiratory rate 16, blood pressure 161/77, O2 sat 98% room air. GENERAL: No acute distress. Alert. NECK: No JVD. CHEST: Clear to auscultation. CARDIOVASCULAR: Regular rate and rhythm. Normal S1 and S2. No S3, no S4, no murmurs. ABDOMEN: Soft, nontender. EXTREMITIES: Bilateral AKA. CARDIOVASCULAR MEDICATIONS: Reviewed. Metoprolol succinate 25 mg daily, clopidogrel 75 mg daily, atorvastatin 20 mg nightly. LABORATORY STUDIES: Studies reviewed. Sodium 137, potassium 3.8, chloride 105, bicarbonate 23, BUN less than 5, creatinine 0.45, glucose 99, calcium 8.5. TELEMETRY: Normal sinus rhythm. ASSESSMENT: 1. Status post left above-knee amputation. 2. Bilateral above-knee amputation. 3. Peripheral arterial disease with iliac stents as well as femoral artery extensive stents. 4. Dementia. 5. Dyslipidemia. 6. Hypertension. PLAN: 1. Continue current cardiovascular medications. 2. Wound care. 3. Undergoing disposition planning, possible rehab. Job#: [id number] MAURY
[2017-10-06] MEDS: HYDROCODONE/APAP 7.5MG-325MG 1 EA TAB PO PRN (13:15)
--- NOTE | 2017-10-06 13:49 | Progress Note ---
DATE: October 06, 2017 CARDIOLOGY PROGRESS NOTE DICTATION IN ERROR Job#: [id number] RI RAMILA
[2017-10-06 16:00] VITALS: BP 143/75
== END 2017-10-06 18:27 | DRG 239 ==
LOC: ER 21:45 → ERHOLD 09-23 00:28 → MED/SURG3 09-23 02:18
PROVIDERS: ADMIT Family Medicine; ATTEND Family Medicine
PROC: B41D1ZZ Fluoroscopy of Aorta and Bilateral Lower Extremity Arteries using Low Osmolar Contrast (ICD-10-PCS; principal; 2017-09-25)
PROC: 0Y6D0Z3 Detachment at Left Upper Leg, Low, Open Approach (ICD-10-PCS; 2017-09-28)
DX: I70.223 Atherosclerosis of native arteries of extremities with rest pain, bilateral legs (principal); E43 Unspecified severe protein-calorie malnutrition; L03.116 Cellulitis of left lower limb; F05 Delirium due to known physiological condition; I96 Gangrene, not elsewhere classified; Z68.1 Body mass index [BMI] 19.9 or less, adult; J44.9 Chronic obstructive pulmonary disease, unspecified; Z72.0 Tobacco use; I10 Essential (primary) hypertension; E78.5 Hyperlipidemia, unspecified; G30.9 Alzheimer's disease, unspecified; F02.80 Dementia in other diseases classified elsewhere, unspecified severity, without behavioral disturbance, psychotic disturbance, mood disturbance, and anxiety; Z89.611 Acquired absence of right leg above knee; I25.10 Atherosclerotic heart disease of native coronary artery without angina pectoris; R23.4 Changes in skin texture; M20.42 Other hammer toe(s) (acquired), left foot; Z95.820 Peripheral vascular angioplasty status with implants and grafts; L90.5 Scar conditions and fibrosis of skin; D64.9 Anemia, unspecified; F41.9 Anxiety disorder, unspecified; L89.311 Pressure ulcer of right buttock, stage 1
CPT/HCPCS: 36415; 71045; 75635; 77002; 80048; 80053; 80061; 82550; 82553; 82728; 82948; 83540; 83605; 84443; 84466; 84484; 85025; 85610; 85730; 87040; 88307; 88311; 93005; 93971; 96361; 97139; 99284; C1769; J0694; J1100; J1644; J2001; J2060; J2250; J2270; J2405; J7030; J7050; Q9967

== ENCOUNTER 2018-03-01 14:10 | Emergency (ER) | payer MEDICARE, OTHER ==
[~2018-03-01] VITALS: Ht 149.9 cm; Wt 35.8 kg
--- OUTSIDE RECORDS SUMMARY | 2018-03-01 14:13 | XMS REPORT | Clinical Summary ---
Author Author [facility] Organization [facility] Address Unknown Phone Unavailable Care Team Providers Care Ticket Puller Name Role Phone Jerod Magallon MD PCP Allergies No Known Allergies Medications End Date Status Medication Sig Dispensed Refills Start Date Active clopidogrel (PLAVIX) 75 Take 75 mg by 0 mg tablet mouth daily. 10/13/2017 Discontinued aspirin (ECOTRIN) 81 MG Take 81 mg by 0 enteric coated tablet mouth daily. 11/12/2017 atorvastatin (LIPITOR) 20 Take 1 tablet 30 tablet 0 MG tablet (20 mg total) 8 by mouth nightly for 30 days. 11/12/2017 bisacodyl (DULCOLAX) 10 Insert 1 0 mg suppository suppository 8 (10 mg total) into the rectum daily as needed for constipation for up to 30 days. 11/12/2017 docusate sodium (COLACE) Take 1 0 100 MG capsule capsule (100 8 mg total) by mouth 2 (two) times a day as needed for constipation for up to 30 days. 10/20/2017 doxycycline 50 mg tablet Take 50 mg by 0 mouth 2 (two) 8 times a day with meals for 7 days. 11/12/2017 enoxaparin (LOVENOX) 40 Inject 0.4 mL 12 mL 0 mg/0.4 mL syringe (40 mg total) 8 under the skin daily for 30 days. 11/13/2017 ferrous sulfate 325 (65 Take 1 tablet 30 tablet 0 FE) MG tablet (325 mg 8 total) by mouth daily for 30 days. 11/13/2017 metoprolol succinate XL Take 1 tablet 30 tablet 0 (TOPROL-XL) 25 mg 24 hr (25 mg total) 8 tablet by mouth daily for 30 days. 10/20/2017 piperacillin-tazobactam Infuse 3.375 0 (ZOSYN) 3.375 gram in 50 g into a 8 mL Mini-Bag Plus venous catheter every 8 (eight) hours for 7 days. 11/12/2017 risperiDONE (RisperDAL) Take 1 tablet 0 0.5 MG tablet (0.5 mg 8 total) by mouth daily for 30 days. 11/12/2017 sennosides-docusate Take 1 tablet 30 tablet 0 sodium (SENOKOT-S) 8.6-50 by mouth 8 mg per tablet nightly for 30 days. Active Problems Problem Noted Date Debility 10/07/2017 PVD (peripheral vascular disease) 02/02/2016 Last Assessment & Plan: Patient previously seen in the hospital 2 weeks ago with new right 1st/5th toe dry gangrene. Has history of extensive right lower extremity stenting. Patient does not have any good revascularization options, but wounds are not currently infected and pain is tolerable. Patient is ambulatory, so we will defer amputation for now. Patient would need an AKA if we were to proceed with an amputation. She will follow up if there are any changes or the pain becomes unbearable. Memory deficit 02/02/2016 Encounters Care Team Description Date Type Specialty Mikhail Briones MD Yerramadha, Muralidhar Reddy, MD Debility (Primary Dx) 10/06/2017 Hospital Rehabilitation - Encounter 10/13/2017 Tiana Posada MA 09/14/2017 Telephone Cardiovascular after 02/28/2017 Family History Relation Name Status Comments Father Mother Social History Date Tobacco Use Types Packs/Day Years Used Current Every Day Smoker Cigarettes Alcohol Use Drinks/Week oz/Week Comments No Sex Assigned at Date Recorded Not on file Industry Job Start Date Occupation Not on file Not on file Not on file Travel End Travel History Travel Start No recent travel history available. Last Filed Vital Signs Time Taken Vital Sign Reading 10/13/2017 11:55 AM CDT Blood Pressure 99/49 10/13/2017 11:55 AM CDT Pulse 76 10/13/2017 11:55 AM CDT Temperature 36.4 C (97.5 F) 10/13/2017 11:55 AM CDT Respiratory Rate 16 10/13/2017 7:09 AM CDT Oxygen Saturation 94% - Inhaled Oxygen - Concentration 10/06/2017 8:00 PM CDT Weight 39 kg (86 lb) 10/10/2017 1:02 PM CDT Height 142.2 cm (4' 8") 10/06/2017 8:00 PM CDT Body Mass Index 19.28 Plan of Treatment Health Maintenance Due Date Last Done Comments BREAST CANCER SCREENING 1992 COLON CANCER SCREENING 1992 SHINGLES VACCINES (1 of 1992 2) PNEUMOCOCCAL 12/25/2007 POLYSACCHARIDE VACCINE AGE 65 AND OVER PNEUMOCOCCAL-13 12/25/2007 INFLUENZA VACCINE 10/04/2017 Procedures Comments Procedure Name Priority Date/Time Associated Diagnosis MANUAL DIFFERENTIAL Routine 10/13/2017 4:42 AM CDT ZZESTIMATED GFR Routine 10/13/2017 4:42 AM CDT HEPATIC FUNCTION PANEL Routine 10/13/2017 4:42 AM CDT CBC WITH PLATELET AND Routine 10/13/2017 DIFFERENTIAL 4:42 AM CDT BASIC METABOLIC PANEL Routine 10/13/2017 4:42 AM CDT ZZESTIMATED GFR Routine 10/09/2017 5:05 AM CDT HC COMPLETE BLD COUNT Routine 10/09/2017 W/AUTO DIFF 5:05 AM CDT BASIC METABOLIC PANEL Routine 10/09/2017 5:05 AM CDT ZZESTIMATED GFR Routine 10/08/2017 5:05 AM CDT FERRITIN LEVEL Routine 10/08/2017 5:05 AM CDT VITAMIN B12 LEVEL Routine 10/08/2017 5:05 AM CDT TOTAL IRON BINDING Routine 10/08/2017 CAPACITY 5:05 AM CDT THYROID STIMULATING Routine 10/08/2017 HORMONE 5:05 AM CDT T4, FREE Routine 10/08/2017 5:05 AM CDT T3, FREE Routine 10/08/2017 5:05 AM CDT HC COMPLETE BLD COUNT Routine 10/08/2017 W/AUTO DIFF 5:05 AM CDT BASIC METABOLIC PANEL Routine 10/08/2017 5:05 AM CDT ZZESTIMATED GFR Routine 10/07/2017 5:36 AM CDT HC COMPLETE BLD COUNT Routine 10/07/2017 W/AUTO DIFF 5:36 AM CDT BASIC METABOLIC PANEL Routine 10/07/2017 5:36 AM CDT after 02/28/2017 Results * Estimated GFR (10/13/2017 4:42 AM CDT) Only the most recent of 4 results within the time period is included. GFR Non Af Amer >90 mL/min/1.73 m2 [facility] DEPARTMENT OF PATHOLOGY AND GENOMIC MEDICINE GFR Af Amer >90 mL/min/1.73 m2 [facility] DEPARTMENT OF Comment: PATHOLOGY AND Chronic kidney disease: <60 GENOMIC MEDICINE mL/min/1.73m2 Kidney failure: <15 mL/min/1.73m2 The estimated GFR is calculated from the IDMS-traceable Modification of Diet in Renal Disease Equation. The accuracy of the calculation is poor when the creatinine is normal. Calculated values >90 mL/min/1.73m2 are not reported. This equation has not been validated in children (<18 years), women, the elderly (>70 years), or ethnic groups other than Caucasians and Americans. Specimen Plasma specimen Performing Organization Address City/State/Zipcode Phone Number [place] [phone] [place] [address] PATHOLOGY AND GENOMIC MEDICINE * Manual differential (10/13/2017 4:42 AM CDT) Manual differential PERFORMED [facility] DEPARTMENT OF PATHOLOGY AND GENOMIC MEDICINE Neutrophils 70.0 (H) 36.0 - 66.0 % [facility] DEPARTMENT OF PATHOLOGY AND GENOMIC MEDICINE Lymphocytes 25.0 24.0 - 44.0 % [facility] DEPARTMENT OF PATHOLOGY AND GENOMIC MEDICINE Monocytes 3.0 0.0 - 6.0 % [facility] DEPARTMENT OF PATHOLOGY AND GENOMIC MEDICINE Eosinophils 1.0 0.0 - 6.0 % [facility] DEPARTMENT OF PATHOLOGY AND GENOMIC MEDICINE Basophils 1.0 0.0 - 1.2 % [facility] DEPARTMENT OF PATHOLOGY AND GENOMIC MEDICINE Metamyelocytes 0 0 - 1 % [facility] DEPARTMENT OF PATHOLOGY AND GENOMIC MEDICINE Promyelocytes 0 0 - 1 % [facility] DEPARTMENT OF PATHOLOGY AND GENOMIC MEDICINE Platelet slide review Damián slt incr [facility] DEPARTMENT OF PATHOLOGY AND GENOMIC MEDICINE Anisocytosis slight [facility] DEPARTMENT OF PATHOLOGY AND GENOMIC MEDICINE Polychromasia slight [facility] DEPARTMENT OF PATHOLOGY AND GENOMIC MEDICINE Ovalocytes Occasional [facility] DEPARTMENT OF PATHOLOGY AND GENOMIC MEDICINE Performing Organization Address City/State/Zipcode Phone Number [place] [address] [place] [address] PATHOLOGY AND GENOMIC MEDICINE * CBC with platelet and differential (10/13/2017 4:42 AM CDT) Only the most recent of 4 results within the time period is included. WBC 6.1 4.2 - 11.0 k/uL [facility] DEPARTMENT OF PATHOLOGY AND GENOMIC MEDICINE RBC 2.73 (L) 4.04 - 5.86 m/uL [facility] DEPARTMENT PATHOLOGY AND GENOMIC MEDICINE HGB 8.5 (L) 11.5 - 15.3 g/dL [facility] DEPARTMENT OF PATHOLOGY AND GENOMIC MEDICINE HCT 27.2 (L) 34.0 - 45.0 % [facility] DEPARTMENT OF PATHOLOGY AND GENOMIC MEDICINE MCV 99.6 (H) 80.0 - 98.0 fL [facility] DEPARTMENT OF PATHOLOGY AND GENOMIC MEDICINE MCH 31.1 27.0 - 34.0 pg [facility] DEPARTMENT OF PATHOLOGY AND GENOMIC MEDICINE MCHC 31.3 (L) 31.5 - 36.5 g/dL [facility] DEPARTMENT OF PATHOLOGY AND GENOMIC MEDICINE RDW - SD 58.2 (H) 37.0 - 51.0 fL [facility] DEPARTMENT OF PATHOLOGY AND GENOMIC MEDICINE MPV 9.6 7.4 - 10.4 fL [facility] DEPARTMENT OF PATHOLOGY AND GENOMIC MEDICINE Platelet count 450 (H) 150 - 400 k/uL [facility] DEPARTMENT OF PATHOLOGY AND GENOMIC MEDICINE Nucleated RBC 0.00 /100 WBC [facility] DEPARTMENT OF PATHOLOGY AND GENOMIC MEDICINE Neutrophils 70.0 (H) 36.0 - 66.0 % [facility] DEPARTMENT OF PATHOLOGY AND GENOMIC MEDICINE Lymphocytes 25.0 24.0 - 44.0 % [facility] DEPARTMENT OF PATHOLOGY AND GENOMIC MEDICINE Monocytes 3.0 0.0 - 6.0 % [facility] DEPARTMENT OF PATHOLOGY AND GENOMIC MEDICINE Eosinophils 1.0 0.0 - 6.0 % [facility] DEPARTMENT OF PATHOLOGY AND GENOMIC MEDICINE Basophils 1.0 0.0 - 1.2 % [facility] DEPARTMENT OF PATHOLOGY AND GENOMIC MEDICINE Specimen Blood Performing Organization Address City/[facility] [place] [address] PATHOLOGY AND GENOMIC MEDICINE * Hepatic function panel (10/13/2017 4:42 AM CDT) Albumin 2.6 (L) 3.5 - 5.0 g/dL [facility] DEPARTMENT OF PATHOLOGY AND GENOMIC MEDICINE Total bilirubin 0.6 0.2 - 1.2 mg/dL [facility] DEPARTMENT OF PATHOLOGY AND GENOMIC MEDICINE Bilirubin direct <0.2 0.0 - 0.4 mg/dL [facility] DEPARTMENT OF PATHOLOGY AND GENOMIC MEDICINE Alkaline phosphatase 95 0 - 104 U/L [facility] DEPARTMENT OF PATHOLOGY AND GENOMIC MEDICINE Protein 6.6 6.3 - 8.3 g/dL [facility] DEPARTMENT OF PATHOLOGY AND GENOMIC MEDICINE ALT 15 5 - 50 U/L [facility] DEPARTMENT OF PATHOLOGY AND GENOMIC MEDICINE AST 25 10 - 35 U/L [facility] DEPARTMENT OF PATHOLOGY AND GENOMIC MEDICINE Specimen Plasma specimen Performing Organization Address City/[facility] [place] [address] PATHOLOGY AND [facility] * Basic metabolic panel (10/13/2017 4:42 AM CDT) Only the most recent of 4 results within the time period is included. Sodium 141 135 - 150 mEq/L [facility] DEPARTMENT OF PATHOLOGY AND GENOMIC MEDICINE Potassium 3.6 3.5 - 5.0 mEq/L [facility] DEPARTMENT OF PATHOLOGY AND GENOMIC MEDICINE Chloride 103 98 - 112 mEq/L [facility] DEPARTMENT OF PATHOLOGY AND GENOMIC MEDICINE CO2 25 24 - 31 mmol/L [facility] DEPARTMENT OF PATHOLOGY AND GENOMIC MEDICINE Anion gap 13@ANIO 7 - 15 mEq/L [facility] DEPARTMENT OF PATHOLOGY AND GENOMIC MEDICINE BUN 7 7 - 18 mg/dL [facility] DEPARTMENT OF PATHOLOGY AND GENOMIC MEDICINE Creatinine 0.40 (L) 0.50 - 0.90 mg/dL [facility] DEPARTMENT OF PATHOLOGY AND GENOMIC MEDICINE Glucose 89 65 - 100 mg/dL [facility] DEPARTMENT OF PATHOLOGY AND GENOMIC MEDICINE Calcium 8.6 (L) 8.8 - 10.2 mg/dL [facility] DEPARTMENT OF PATHOLOGY AND GENOMIC MEDICINE Specimen Plasma specimen Performing Organization Address City/[facility] Centercode Phone Number [address] [place] [address] PATHOLOGY AND GENOMIC MEDICINE * Total iron binding capacity (10/08/2017 5:05 AM CDT) Iron level 45 37 - 148 ug/dL [facility] DEPARTMENT OF PATHOLOGY AND GENOMIC MEDICINE Iron binding capacity 252 (L) 271 - 474 ug/dL [facility] DEPARTMENT OF PATHOLOGY AND GENOMIC MEDICINE % Saturation 17.9 15.0 - 38.0 % [facility] DEPARTMENT OF PATHOLOGY AND GENOMIC MEDICINE Specimen Plasma specimen Performing Organization Address City/[facility] Centercode Phone Number [address] [place] [address] PATHOLOGY AND GENOMIC MEDICINE * T3, free (10/08/2017 5:05 AM CDT) T3, free 2.66 2.18 - 3.98 pmol/L [facility] DEPARTMENT OF PATHOLOGY AND GENOMIC MEDICINE Specimen Plasma specimen Performing Organization Address City/[facility] Phone Number [address] [place] [address] PATHOLOGY AND GENOMIC MEDICINE * Thyroid stimulating hormone (10/08/2017 5:05 AM CDT) TSH 0.73 0.27 - 4.20 uIU/mL [facility] DEPARTMENT OF PATHOLOGY AND GENOMIC MEDICINE Specimen Plasma specimen Performing Organization Address [facility] Phone Number [address] [place] [address] PATHOLOGY AND GENOMIC MEDICINE * T4, free (10/08/2017 5:05 AM CDT) T4, free 1.72 (H) 0.90 - 1.70 ng/dL [facility] DEPARTMENT OF PATHOLOGY AND GENOMIC MEDICINE Specimen Plasma specimen Performing Organization Address City/[facility] Centercode Phone Number [address] [place] [address] PATHOLOGY AND GENOMIC MEDICINE * Ferritin level (10/08/2017 5:05 AM CDT) Ferritin level 132 13 - 150 ng/mL [facility] DEPARTMENT OF PATHOLOGY AND GENOMIC MEDICINE Specimen Serum Performing Organization Address City/[facility] Centercode Phone Number [place] [address] [place] [address] PATHOLOGY AND GENOMIC MEDICINE * Vitamin B12 level (10/08/2017 5:05 AM CDT) Vitamin B12 598 231 - 931 pg/mL [facility] DEPARTMENT OF Comment: PATHOLOGY AND Significant overlap exists GENOMIC MEDICINE between normal and deficiency states. However, most patients with deficiencies will have Serum B12 <200 pg/mL. Specimen Serum Performing Organization Address City/State/Zipcode Phone Number [place] [address] [place] [address] PATHOLOGY AND GENOMIC MEDICINE after 02/28/2017 Insurance Payer Benefit Subscriber ID Type Phone Address Plan / Group [facility] MEDICARE [facility] xxxxxxxxx HMO CONNECTED (MEDICARE- MEDICAID PLAN) Advance Directives Patient has advance care planning documents on file. For more information, aayush metzger contact: Marcus Rivera [address] [place] [address]
--- NOTE | 2018-03-01 16:45 | NUR ---
PT MOVED FROM HALLWAY TO ROOM 3 VIA STRETCHER. REPORT RECEIVED FROM LENNOX DELGADO. PENDING MD ORDERS AT THIS TIME, PT AND DAUGHTER MADE AWARE OF THIS.
[2018-03-01] MEDS ORDERED: DOXYCYCLINE HY100 MG PO (18:37)
[2018-03-01] MEDS ORDERED: METOPROLOL SUCC25 MG (18:37)
[2018-03-01] MEDS ORDERED: CRESTOR10 MG PO (18:37)
[2018-03-01] MEDS ORDERED: ASPIR 8181 MG PO (18:37)
[2018-03-01] MEDS ORDERED: MECLIZINE HCL12.5 MG PO (18:37)
[2018-03-01] MEDS ORDERED: POTASSIUM CHLO20 ME1 PO (18:37)
[2018-03-01] MEDS ORDERED: RISPERIDONE0.5 MG PO (18:37)
[2018-03-01] MEDS ORDERED: CEPHALEXIN500 MG PO (18:37)
[2018-03-01] MEDS ORDERED: PREDNISONE5 MG PO (18:37)
--- NOTE | 2018-03-01 19:15 | NUR ---
REPORT GIVEN TO LENNOX BOWMAN [employer] CAPTAIN NURSE; DR. NOLAN AND DIAN BRIONES IN ROOM EVALUATING PT AT THIS TIME.
--- NOTE | 2018-03-01 20:29 | Diagnostic Imaging Report ---
CT CERVICAL SPINE WO, CT THORACIC SPINE WO HISTORY: Neck and back pain COMPARISON: Chest radiograph 09/22/2017 TECHNIQUE: CT of the cervical spine and thoracic without contrast. Sagittal and coronal reformations were created. One or more of the following dose reduction techniques were used: Automated exposure control, adjustment of the mA and/or kV according to patient size, and/or utilization of iterative reconstruction technique. FINDINGS: Bone demineralization limits evaluation. Cervical lordosis is slightly straightened. Thoracic kyphosis is preserved. Thoracolumbar levoscoliosis is partially visualized. No definite acute fracture or compression deformity is seen. The craniocervical junction is intact. No gross spinal canal masses are seen. The paravertebral and paraspinal soft tissues are unremarkable. Mild to moderate multilevel spondylotic changes are most prominent at C4-C5, T2-T3, and T3-T4. There is mild retrolisthesis of C4 on C5. Multilevel bilateral cervical facet arthrosis is present, right greater than left. There is associated grade 1 anterolisthesis of C6 on C7, C7 on T1, and T1 on T2. There is scarring in the lung apices. Mild dependent atelectasis is also seen in the lungs. Bilateral cervical carotid calcifications are partially visualized. Aortic and coronary artery calcifications are present. There is a moderate-sized sliding hiatal hernia. Partially visualized calcification in the anterior right hepatic lobe may be a granuloma. IMPRESSION: 1. No acute osseous abnormalities. 2. Mild to moderate multilevel spondylosis, most prominent at C4-C5, T2-T3, and T3-T4. 3. Multilevel bilateral cervical facet arthrosis, right greater than left. Associated grade 1 anterolisthesis of C6 on C7, C7 on T1, and T1 on T2. 4. Partially visualized thoracolumbar levoscoliosis. Signed by: Dr. Alejandro Child M.D. on 03/01/2018 8:26 PM
[2018-03-01 21:10] LABS: CLARITY,URINE CLEAR (CLEAR); COLOR,URINE YELLOW (YELLOW); LEUKOCYTE ESTERASE ,URINE NEGATIVE (NEGATIVE); NITRITE,URINE NEGATIVE (NEGATIVE); PROTEIN,URINE DIPSTICK NEGATIVE (NEGATIVE)
[2018-03-01 21:11] LABS: BILIRUBIN,URINE NEGATIVE (NEGATIVE); KETONES,URINE NEGATIVE (NEGATIVE); URINE UROBILINOGEN 0.2 mg/dL (0.2 - 1)
[2018-03-01 21:23] LABS: BACTERIA,URINE FEW /HPF; EPITHELIAL CELLS,URINE FEW /LPF; RBC,URINE 0-5 /HPF (0-5); WBC,URINE (MAN) 0-5 /HPF (0-5)
[2018-03-01] MEDS ORDERED: LIDOCAINE 5% PATCH TP SCH (22:30)
[2018-03-01 22:37] VITALS: BP 122/90
== END 2018-03-01 22:38 | disposition home or self-care (01) ==
LOC: ER 14:10
DX: M54.2 Cervicalgia (principal); M54.6 Pain in thoracic spine; I25.10 Atherosclerotic heart disease of native coronary artery without angina pectoris; J44.9 Chronic obstructive pulmonary disease, unspecified; E78.5 Hyperlipidemia, unspecified; Z95.1 Presence of aortocoronary bypass graft; Z89.612 Acquired absence of left leg above knee; Z89.611 Acquired absence of right leg above knee; Z86.718 Personal history of other venous thrombosis and embolism
CPT/HCPCS: 72125; 72128; 81001; 99284